=== PATIENT | female | born 1945 | race Caucasian/White ===

== ENCOUNTER 2016-11-17 21:24 | Inpatient (IN) | payer OTHER, SELFPAY ==
[2016-11-17] MEDS ORDERED: Sodium Chloride 0.9% 1,000 ML IV STA (21:56)
[2016-11-17 22:09] LABS: BASO % 0.5 % (0.0-2.0); EOS # 0.1 K/uL (0.0-0.7); EOS % 1.1 % (0.0-4.0); LYMPH # 1.2 K/uL (1.0-4.3); LYMPH % 25.7 % (20.0-40.0); MEAN CORPUSCULAR HEMOGLOBIN 29.8 pg (27.0-31.0); MEAN CORPUSCULAR HGB CONC 33.1 g/dL (33.0-37.0); MEAN PLATELET VOLUME 9.2 fl (7.2-11.7); MONO # 0.4 K/uL (0.0-0.8); MONO % 8.5 % (0.0-10.0); NEUT # 3.1 K/uL (1.8-7.0); NEUT % 64.2 % (50.0-75.0); RED CELL DISTRIBUTION WIDTH 12.9 % (11.5-14.5); WHITE BLOOD COUNT 4.9 K/uL (4.8-10.8)
[2016-11-17 22:20] LABS: ALB/GLOB RATIO 1.3 (1.0-2.1); ALKALINE PHOSPHATASE 197 U/L (38-126); ALT/SGPT 40 U/L (9-52); AST/SGOT 22 U/L (14-36); BILIRUBIN,TOTAL 0.3 mg/dl (0.2-1.3); BLOOD UREA NITROGEN 21 mg/dl (7-17); CALCIUM 9.4 mg/dL (8.4-10.2); CARBON DIOXIDE 27 mmol/L (22-30); CHLORIDE 95 mmol/L (98-107); GFR AFRICAN-AMERICAN > 60; PHOSPHOROUS 3.7 mg/dl (2.5-4.5); POTASSIUM 5.1 MMOL/L (3.6-5.0); SODIUM 133 mmol/l (132-148); TOTAL PROTEIN 7.7 G/DL (6.3-8.2)
[2016-11-17 22:22] LABS: VENOUS BLOOD GAS BASE EXCESS 5.7 mmol/L (0.0-2.0); VENOUS BLOOD GAS PCO2 53 mmHg (40-60); VENOUS BLOOD PH 7.39 (7.32-7.43)
[2016-11-17 22:25] LABS: PARTIAL THROMBOPLASTIN TIME 26.8 Seconds (25.6-37.1)
[2016-11-17] MEDS ORDERED: Insulin Regular 100 units/ml SC STA (22:30)
[2016-11-17] MEDS ORDERED: Insulin Regular 100 units/ml IVP STA (22:30)
[2016-11-17 22:32] LABS: GLUCOSE,RANDOM 627 mg/dL (65-105)
--- NOTE | 2016-11-17 23:09 | ED PDOC ---
Hyperglycemia/Hypoglycemia Time Seen by Provider: 11/17/16 21:35 Chief Complaint (Nursing): High Blood Sugar Chief Complaint (Provider): hyperglycemia History Per: Patient : The patient does not have any of the infectious symptoms listed except for those marked. Past Medical History Vital Signs: Last Vital Signs Temp 98.5 F 11/17/16 21:26 Pulse 71 11/17/16 21:26 Resp 18 11/17/16 21:26 BP 125/82 11/17/16 21:26 Pulse Ox 100 11/17/16 21:26 - Medical History PMH: Dementia (possible), Diabetes (type I), HTN, Hyperthyroidism, Osteoporosis Denies: HIV, Chronic Kidney Disease - Family History Family History: States: Unknown Family Hx - Home Medications Home Medications: Ambulatory Orders Medication Instructions Recorded Aspirin 81 mg PO DAILY #0 tab 05/13/15 Gabapentin [Neurontin] 100 mg PO Q12 #0 cap 05/13/15 GlipiZIDE [Glucotrol] 5 mg PO BID #0 tab 05/13/15 Insulin Regular [HumuLIN R] 1 units SC TID #0 ml 05/13/15 MetFORMIN [glucoPHAGE] 1,000 mg PO BID #0 tab 05/13/15 - Allergies Allergies/Adverse Reactions: Allergies Allergy/AdvReac Type Severity Reaction Status Date / Time No Known Allergies Allergy Verified 03/17/15 19:34 - Laboratory Results Result Diagrams: 11/17/16 22:05 11/17/16 22:06 - ECG O2 Sat by Pulse Oximetry: 100
[2016-11-17] MEDS ORDERED: Glucagon Recombinant 1 mg Inj IM PRN (23:20)
[2016-11-17] MEDS ORDERED: Dextrose 50% SYRINGE Inj (50 ml) IV PRN (23:20)
[2016-11-18 07:01] LABS: HEMATOCRIT 32.8 % (34.0-47.0); MEAN CELL VOLUME 88.9 fl (81.0-99.0); MEAN CORPUSCULAR HGB CONC 33.7 g/dL (33.0-37.0); RED CELL DISTRIBUTION WIDTH 12.5 % (11.5-14.5); WHITE BLOOD COUNT 5.6 K/uL (4.8-10.8)
[2016-11-18 07:10] LABS: ALB/GLOB RATIO 1.2 (1.0-2.1); ALKALINE PHOSPHATASE 92 U/L (38-126); ALT/SGPT 35 U/L (9-52); AST/SGOT 23 U/L (14-36); BILIRUBIN,TOTAL 0.2 mg/dl (0.2-1.3); BLOOD UREA NITROGEN 16 mg/dl (7-17); CALCIUM 8.8 mg/dL (8.4-10.2); CARBON DIOXIDE 29 mmol/L (22-30); CHLORIDE 104 mmol/L (98-107); GFR AFRICAN-AMERICAN > 60; GLUCOSE,RANDOM 78 mg/dL (65-105); POTASSIUM 3.5 MMOL/L (3.6-5.0); SODIUM 143 mmol/l (132-148); TOTAL PROTEIN 6.7 G/DL (6.3-8.2)
[2016-11-18 07:22] LABS: T4 6.51 ug/dl (5.5-11.0)
[2016-11-18] MEDS ORDERED: Insulin Regular 100 units/ml SC SCH (07:30)
[2016-11-18 07:35] LABS: THYROID STIMULATING HORMONE 1.04 mIU/ML (0.46-4.68)
[2016-11-18] MEDS: Insulin Regular 100 units/ml SC SCH ×4 (08:25→22:03)
--- NOTE | 2016-11-18 15:50 | RAD ---
HISTORY: Hyperglycemia COMPARISON: Comparison chest 05/13/2015 TECHNIQUE: Chest PA and lateral FINDINGS: LUNGS: No active pulmonary disease. PLEURA: No significant pleural effusion identified. No pneumothorax apparent. CARDIOVASCULAR: Normal. OSSEOUS STRUCTURES: There is mild dextroscoliosis centered in the lower thoracic region minor multilevel degenerative spondylosis of the thoracic spine VISUALIZED UPPER ABDOMEN: Normal. OTHER FINDINGS: None. IMPRESSION: No acute infiltrates.
[2016-11-18] MEDS ORDERED: Insulin Lispro Mix 75/25 100 units/ml (HumaLog) 10ml SC SCH (16:30)
--- NOTE | 2016-11-18 18:31 | CP.PCM.HP ---
History of Present Illness - History of Present Illness History of Present Illness: CC: Blood Sugar elevated. 71 y/o F, brought by family to ER [facility], [place] due to high BS, onset 3 weeks [employer] with no control. Pt seen in ER, BS high elevated, found in 627, associated to nocturnal polyuria , dizziness, lightheadedness. Worsening symptoms: Dementia, also c/o of pain L /E moderate to severe 7:10. Pt Dx by Psychiatric on 09/15/14 with Dementia type Alzheimer, as per daughter, Pt has been out of Insulin for 2 months, due to non insurance and no financial facility to obtained, at times she get samples from her PMD, also she doesn't know how to use it or administer and unable to take medications 2nd to her cognitive impairment. Aggravated factor: Non in compliance with medications, poor historian. As per daughter: No fever, chills, n/v/d, abdominal pain, CP, palpitations, SOB , sick contact, recent travel. PMHx: HTN, O/A, Dyslipidemia, DMII, Diabetic Neuropathy, Dementia-Alzheimer type, Hx of R Parathyroid Adenoma with Parathyroidectomy on 09/11/14. CXR shows: No acute infiltrate. Present on Admission - Present on Admission Any Indicators Present on Admission: Yes History of Uncontrolled Diabetes: Yes Review of Systems - Constitutional Constitutional: Weakness - EENT Eyes: Requires Corrective Lenses Ears: Other (negative) Nose/Mouth/Throat: Other (negative) - Cardiovascular Cardiovascular: Lightheadedness - Respiratory Respiratory: Other (negative) - Gastrointestinal Gastrointestinal: Other (negative) - Genitourinary Genitourinary: Pyuria, Nocturia, Urinary Frequency - Musculoskeletal Musculoskeletal: Arthralgias - Integumentary Integumentary: Other (negative) - Neurological Neurological: Confusion, Dizziness - Psychiatric Psychiatric: Other (cognitive impairment.) - Endocrine Endocrine: Other (negative) - Hematologic/Lymphatic Hematologic: Other (negative) Past Patient History - Past Medical History & Family History Past Medical History?: Yes Pertinent Family History: HTN, DMII. - Past Social History Smoking Status: Never Smoked Alcohol: None Drugs: Denies Home Situation {Lives}: With Family - CARDIAC Hx Cardiac Disorders: Yes Hx Hypercholesterolemia: Yes Hx Hypertension: Yes - PULMONARY Hx Respiratory Disorders: No - NEUROLOGICAL Hx Neurological Disorder: Yes Hx Dementia: Yes (possible) Other/Comment: Diabetes Neuropathy. - HEENT Hx HEENT Problems: No - RENAL Hx Chronic Kidney Disease: No - ENDOCRINE/METABOLIC Hx Endocrine Disorders: Yes Hx Diabetes Mellitus Type 2: Yes Other/Comment: Hx Parathyroid Adenoma with Parathyroidectomy on 09/11/14. - HEMATOLOGICAL/ONCOLOGICAL Hx Blood Disorders: No Hx Human Immunodeficiency Virus (HIV): No - INTEGUMENTARY Hx Dermatological Problems: No - MUSCULOSKELETAL/RHEUMATOLOGICAL Hx Musculoskeletal Disorders: Yes Hx Arthritis: Yes Hx Falls: No Hx Osteoporosis: Yes - GASTROINTESTINAL Hx Gastrointestinal Disorders: No - GENITOURINARY/GYNECOLOGICAL Hx Genitourinary Disorders: No - PSYCHIATRIC Hx Substance Use: No - SURGICAL HISTORY Hx Surgeries: Yes Other/Comment: parathyroidectomy 09/11/14 - ANESTHESIA Hx Anesthesia: Yes Hx Anesthesia Reactions: No Hx Malignant Hyperthermia: No Meds Allergies/Adverse Reactions: Allergies Allergy/AdvReac Type Severity Reaction Status Date / Time No Known Allergies Allergy Verified 03/17/15 19:34 Physical Exam - Constitutional Appears: No Acute Distress, Chronically Ill - Head Exam Head Exam: NORMAL INSPECTION - Eye Exam Eye Exam: PERRL Additional comments: Conjunctivae redness. - ENT Exam ENT Exam: Normal Exam - Neck Exam Neck exam: Positive for: Normal Inspection - Respiratory Exam Respiratory Exam: NORMAL BREATHING PATTERN - Cardiovascular Exam Cardiovascular Exam: REGULAR RHYTHM - GI/Abdominal Exam GI & Abdominal Exam: Normal Bowel Sounds, Soft - Extremities Exam Extremities exam: Positive for: normal inspection - Back Exam Back exam: NORMAL INSPECTION - Neurological Exam Neurological exam: Alert, Oriented x3 Additional comments: Forgetful, no focal motor sensory deficit. - Psychiatric Exam Psychiatric exam: Normal Mood - Skin Skin Exam: Warm Results - Vital Signs Recent Vital Signs: Last Vital Signs Temp 98.6 F 11/18/16 16:07 Pulse 66 11/18/16 16:07 Resp 20 11/18/16 16:07 BP 110/64 11/18/16 16:07 Pulse Ox 96 11/18/16 16:07 reviewed Maximo - Labs Result Diagrams: 11/20/16 06:00 11/20/16 06:00 Labs: Laboratory Results - last 24 hr 11/17/16 11/18/16 11/18/16 23:58 01:28 05:30 WBC 5.6 RBC 3.69 L Hgb 11.1 L Hct 32.8 L MCV 88.9 MCH 30.0 MCHC 33.7 RDW 12.5 Plt Count 171 Sodium Potassium Chloride Carbon Dioxide Anion Gap BUN Creatinine Est GFR ( Amer) Est GFR (Non-Af Amer) POC Glucose (mg/dL) 348 H 238 H Random Glucose Hemoglobin A1c Calcium Total Bilirubin AST ALT Alkaline Phosphatase Total Protein Albumin Globulin Albumin/Globulin Ratio Thyroxine (T4) Total T3 TSH 3rd Generation 11/18/16 11/18/16 11/18/16 05:30 05:30 06:20 WBC RBC Hgb Hct MCV MCH MCHC RDW Plt Count Sodium 143 Potassium 3.5 L Chloride 104 Carbon Dioxide 29 Anion Gap 14 BUN 16 Creatinine 0.6 L Est GFR ( Amer) > 60 Est GFR (Non-Af Amer) > 60 POC Glucose (mg/dL) 82 Random Glucose 78 Hemoglobin A1c 15.0 H Calcium 8.8 Total Bilirubin 0.2 AST 23 ALT 35 Alkaline Phosphatase 92 Total Protein 6.7 Albumin 3.6 Globulin 3.1 Albumin/Globulin Ratio 1.2 Thyroxine (T4) 6.51 Total T3 0.733 L TSH 3rd Generation 1.04 11/18/16 11/18/16 10:45 15:50 WBC RBC Hgb Hct MCV MCH MCHC RDW Plt Count Sodium Potassium Chloride Carbon Dioxide Anion Gap BUN Creatinine Est GFR ( Amer) Est GFR (Non-Af Amer) POC Glucose (mg/dL) 388 H 272 H Random Glucose Hemoglobin A1c Calcium Total Bilirubin AST ALT Alkaline Phosphatase Total Protein Albumin Globulin Albumin/Globulin Ratio Thyroxine (T4) Total T3 TSH 3rd Generation reviewed J.P. Assessment & Plan (1) DM2 (diabetes mellitus, type 2) Status: Acute Priority: High (2) Hyperglycemia Status: Acute Priority: High (3) Dementia Status: Chronic Priority: Low (4) Osteoporosis Status: Chronic Priority: Medium - Assessment and Plan (Free Text) Plan: F/U Echo, EKG, continue Humalin R, Glucophage, Lipitor and rest of Tx. Endocrinology consult - Date & Time Date: 11/18/16 Time: 16:00
--- NOTE | 2016-11-18 20:18 | CARD ---
APPROVED REPORT EXAM: Two-dimensional and M-mode echocardiogram with Doppler and color Doppler. Other Information Quality : GoodRhythm : NSR INDICATION LV Function:SystolicDiastolic 2D DIMENSIONS IVSd1.06 (0.7-1.1cm)LVDd3.09 (3.9-5.9cm) LVOT Diameter1.92 (1.8-2.4cm)PWd0.77 (0.7-1.1cm) IVSs1.64 (0.8-1.2cm)LVDs1.71 (2.5-4.0cm) FS (%) 44.5 %PWs0.95 (0.8-1.2cm) LVEF (%)55.0 (>50%) M-Mode DIMENSIONS Left Atrium (MM)3.71 (2.5-4.0cm)IVSd1.21 (0.7-1.1cm) Aortic Root3.14 (2.2-3.7cm)LVDd4.09 (4.0-5.6cm) Aortic Cusp Exc.2.11 (1.5-2.0cm)PWd1.00 (0.7-1.1cm) IVSs1.72 cmFS (%) 53 % LVDs1.93 (2.0-3.8cm)PWs1.49 cm Mitral Valve MV E Dsrqvqfg38.8cm/sMV DECEL QOMS273ymFR A Xwhivynb14.7cm/s MV UBD34uuY/A ratio0.8MVA (PHT)2.25cm2 TDI Lateral E' Peak V9.53cm/sMedial E' Peak V6.76cm/sE/Lateral E'7.0 E/Medial E'9.9 LEFT VENTRICLE The left ventricle is normal size. There is mild concentric left ventricular hypertrophy. The left ventricular function is normal. The left ventricular ejection fraction is within the normal range. There is normal LV segmental wall motion. Transmitral Doppler flow pattern is Grade I-abnormal relaxation pattern. RIGHT VENTRICLE The right ventricle is normal size. There is normal right ventricular wall thickness. The right ventricular systolic function is normal. ATRIA The left atrium size is normal. The right atrium size is normal. AORTIC VALVE The aortic valve is mildly thickened. No aortic regurgitation is present. There is no aortic valvular stenosis. MITRAL VALVE The mitral valve is mildly thickened. There is no mitral valve stenosis. There is no mitral valve regurgitation noted. TRICUSPID VALVE The tricuspid valve is normal in structure and function. There is no tricuspid valve regurgitation noted. PULMONIC VALVE The pulmonary valve is normal in structure and function. There is no pulmonic valvular regurgitation. GREAT VESSELS The aortic root is normal in size. The IVC was not visualized. PERICARDIAL EFFUSION The pericardium appears normal. <Conclusion> The left ventricle is normal size. There is mild concentric left ventricular hypertrophy. The left ventricular function is normal. The left ventricular ejection fraction is within the normal range. There is normal LV segmental wall motion. Transmitral Doppler flow pattern is Grade I-abnormal relaxation pattern.
--- NOTE | 2016-11-18 20:44 | CON ---
DATE: 11/18/2016 ROOM: 657 HISTORY OF PRESENT ILLNESS: This is a 71-year-old female with recent uncontrolled type 2 insulin-req uiring diabetes, presenting here with hyperglycemic accelerations and is now being referred for diabe tic evaluation and management. She is currently on a combination of metformin taken as 1 gram b.i.d. and glipizide as 5 mg b.i.d. as noted. PAST MEDICAL HISTORY: As mentioned above, history of type 2 diabetes on an oral hypoglycemic drug co mbination, history of hypertensive cardiovascular disease and dyslipidemia, history of diffuse osteoa rthritis as noted. FAMILY HISTORY: Positive for diabetes and hypertension. SOCIAL HISTORY: The patient has supportive family. No known substance use. REVIEW OF SYSTEMS: As mentioned above, admits to generalized body weakness with easy fatigability an d tiredness and suboptimal energy level. Also admits to episodic bouts of dizziness and lightheadedn ess, worse in the last few days prior to admission. No chest pains or palpitations or PNDs. Her ora l intake has been variable and suboptimal with occasional dyspepsia and habitual constipation. Also, admits to marked polyuria, nocturia, worse in the last few weeks prior to admission. PHYSICAL EXAMINATION: GENERAL: An average built female in no apparent distress. VITAL SIGNS: Blood pressure 144/80, pulse of 70 beats per minute and regular, temperature 98, respir ations 20. HEENT: Head normocephalic. Eyes anicteric with pink conjunctivae. Fundoscopy not possible at this time. Ears, nose and throat otherwise normal. NECK: Supple. Thyroid gland is normal size. No carotid bruits or any cervical adenopathy. CARDIOPULMONARY: Some adynamic precordium. S1, S2 is rapid and regular. LUNGS: Clear to auscultation. ABDOMEN: Flat, soft with positive bowel sounds. EXTREMITIES: No peripheral edema. Pulses are +2 bilaterally. LABORATORY DATA: Have been reviewed. Chemistries have been reviewed as noted, her ____ have ranged from 250 to 388 mg/dL as noted. ASSESSMENT: This is a 71-year-old female with uncontrolled and decompensated type 2 insulin-requirin g diabetes with possible secondary pancreatic failure and clearly insulin-requiring with as noted fro m the elevated A1c values as given. PLAN OF MANAGEMENT: We will add premixed insulin regimen, which is a more affordable and cheaper ins ulin such as Humulin or Novolin 70/30 given twice daily. However, our hospital formulary only caries Humalog 75/25 which is a very expensive insulin analogs as noted. We will give basal insulin only f or inpatient use, but upon discharge we recommended cheaper and more affordable conventional insulin medications as mentioned. We will start her today on Humalog 75/25 given as 30 units a.c. breakfast and 20 units a.c. dinner to start at dinnertime today as ordered. We will continue the metformin giv en as 1 gram b.i.d. and increase the glipizide to 10 mg b.i.d. before meals as ordered. We will cont inue the low-dose correction scale using regular insulin as modified and ordered. We will obtain ser ial chemistries and supplement accordingly as needed. We will also initiate diabetic education to in clude insulin self-administration prior to discharge. We will also reinforce healthier food choices and consult our molded frames assembler for dietary advice and evaluation. Mattie Estrella MD cc: [phone] TT: 11/18/2016 20:43:51 Confirmation # [id number] Dictation # [id number] gina
--- NOTE | 2016-11-18 23:35 | CARD ---
APPROVED REPORT EKG Measurement Heart [id number] IL [id number] [id number] <Conclusion> Normal sinus rhythm Low voltage QRS Possible Inferior infarct, age undetermined Abnormal ECG
[2016-11-19] MEDS: Insulin Regular 100 units/ml SC SCH ×4 (07:30→22:35)
[2016-11-19] MEDS: Insulin Lispro Mix 75/25 100 units/ml (HumaLog) 10ml SC SCH ×2 (08:30→10:02)
[2016-11-19 12:42] LABS: HEMATOCRIT 34.1 % (34.0-47.0); MEAN CELL VOLUME 89.7 fl (81.0-99.0); MEAN CORPUSCULAR HGB CONC 33.4 g/dL (33.0-37.0); RED CELL DISTRIBUTION WIDTH 12.8 % (11.5-14.5); WHITE BLOOD COUNT 5.8 K/uL (4.8-10.8)
[2016-11-19 13:00] LABS: BLOOD UREA NITROGEN 13 mg/dl (7-17); CARBON DIOXIDE 27 mmol/L (22-30); CHLORIDE 101 mmol/L (98-107); GFR AFRICAN-AMERICAN > 60; GLUCOSE,RANDOM 263 mg/dL (65-105); SODIUM 138 mmol/l (132-148)
--- NOTE | 2016-11-19 13:51 | PN ---
DATE: 11/19/2016 ROOM: 655 This is a 71-year-old female with recent uncontrolled type 2 insulin-requiring diabetes, presenting h ere with marked hyperglycemic accelerations and is now being followed closely for metabolic managemen t. She developed now supervening hypoglycemic episodes overnight, but today has hyperglycemic accele rations as expected with a glucose value of 302 mg/dL at lunch time as noted. It was 70-91 early thi s morning as noted. Her latest chemistry showed a BUN of 16, sodium 143, potassium 3.5, chloride 104, CO2 29, glucose 78 and creatinine 0.6. Her hemoglobin A1c is 15.0%, which is very elevated and indicative of suboptimal metabolic control of her diabetic condition. So at this time, we will continue the same dual oral hypoglycemic therapy with metformin given as 1 g juliana b.i.d. and glipizide as 10 mg b.i.d. before meals. We do not carry at this time the premixed Hum alog 75/25 as noted and discussed with the pharmacist today, so we will hold off on the premixed insu alex regimen and keep her on the low-dose correction scale using regular insulin as ordered. We will titrate incrementally as indicated to optimize metabolic control. We will hold off the initiation of insulin therapy as we do not have it available in the hospital and we are hoping that just the combi nation of oral hypoglycemic therapy will be enough to control her metabolically and clinically as not ed. Mattie Estrella MD cc: [phone] TT: 11/19/2016 13:50:30 Confirmation # [id number] Dictation # [id number] en
--- NOTE | 2016-11-19 15:02 | CP.PCM.PN ---
Subjective - Date & Time of Evaluation Date of Evaluation: 11/19/16 - Subjective Subjective: F/U DMII with Hyperglycemia. Objective - Vital Signs/Intake and Output Vital Signs (last 24 hours): Temp Pulse Resp BP Pulse Ox 98.3 F 67 18 121/69 98 11/19/16 09:00 11/19/16 09:00 11/19/16 09:00 11/19/16 09:00 11/19/16 09:00 - Medications Medications: Current Medications Acetaminophen (Tylenol 325mg Tab) 650 mg PO Q4 PRN PRN Reason: Pain, moderate (4-7) Last Admin: 11/18/16 02:34 Dose: 650 mg Atorvastatin Calcium (Lipitor) 10 mg PO HS JANNET Last Admin: 11/18/16 22:06 Dose: 10 mg Dextrose (Dextrose 50% Inj) 0 ml IV STAT PRN; Protocol PRN Reason: Hyglycemia Protocol Dextrose (Glutose 15) 0 gm PO ONCE PRN; Protocol PRN Reason: Hypoglycemia Protocol Glipizide (Glucotrol) 10 mg PO ACBD [facility] Last Admin: 11/19/16 09:24 Dose: 10 mg Glucagon (Glucagen Diagnostic Kit) 0 mg IM STAT PRN; Protocol PRN Reason: Hypoglycemia Protocol Insulin Human Regular (Humulin R) 0 units SC ACHS JANNET PRN Reason: Protocol Last Admin: 11/19/16 12:37 Dose: 4 unit Metformin HCl (Glucophage) 1,000 mg PO BID [facility] Last Admin: 11/19/16 09:24 Dose: 1,000 mg - Labs Labs: 11/18/16 05:30 11/18/16 05:30 PT 12.6 Seconds (9.8-13.1) 11/17/16 22:15 INR 1.1 (0.9-1.2) 11/17/16 22:15 APTT 26.8 Seconds (25.6-37.1) 11/17/16 22:15 - Constitutional Appears: No Acute Distress - Head Exam Head Exam: NORMAL INSPECTION - Eye Exam Eye Exam: PERRL Additional comments: Conjunctivae redness. - ENT Exam ENT Exam: Normal Oropharynx - Neck Exam Neck Exam: Normal Inspection - Respiratory Exam Respiratory Exam: NORMAL BREATHING PATTERN - Cardiovascular Exam Cardiovascular Exam: REGULAR RHYTHM - GI/Abdominal Exam GI & Abdominal Exam: Soft, Normal Bowel Sounds - Extremities Exam Extremities Exam: Normal Inspection - Back Exam Back Exam: NORMAL INSPECTION - Neurological Exam Neurological Exam: Alert, Oriented x3 Additional comments: No focal motor sensory deficit. - Psychiatric Exam Psychiatric exam: Normal Mood - Skin Skin Exam: Warm Assessment and Plan (1) DM2 (diabetes mellitus, type 2) Status: Acute (2) Hyperglycemia Status: Acute (3) Dementia Status: Chronic (4) Hypercalcemia Status: Deleted (5) Osteoporosis Status: Chronic
[2016-11-20 08:08] LABS: HEMATOCRIT 36.5 % (34.0-47.0); MEAN CELL VOLUME 89.1 fl (81.0-99.0); MEAN CORPUSCULAR HGB CONC 33.7 g/dL (33.0-37.0); RED CELL DISTRIBUTION WIDTH 12.6 % (11.5-14.5); WHITE BLOOD COUNT 5.7 K/uL (4.8-10.8)
[2016-11-20 08:22] LABS: BLOOD UREA NITROGEN 16 mg/dl (7-17); CALCIUM 9.3 mg/dL (8.4-10.2); CARBON DIOXIDE 29 mmol/L (22-30); CHLORIDE 101 mmol/L (98-107); GFR AFRICAN-AMERICAN > 60; GLUCOSE,RANDOM 259 mg/dL (65-105); SODIUM 140 mmol/l (132-148)
[2016-11-20] MEDS: Insulin Regular 100 units/ml SC SCH ×4 (08:27→21:33)
--- NOTE | 2016-11-20 11:59 | PN ---
DATE: 11/20/2016 ROOM: 655. This is a 71-year-old female with recent uncontrolled type 2 insulin-requiring diabetes, now being fo llowed closely for metabolic management. Her glycemic levels are fluctuating as noted with only oral hypoglycemic drug therapy as given. Her glucose values today have ranged from 262-356 mg/dL. Her l atest chemistry showed a BUN of 16, sodium 140, potassium 4.0, chloride 101, CO2 29, glucose 259 and creatinine 0.5. So, at this time, we will actually be adding a more affordable longer acting basal i nsulin at night with Humulin NPH given as 12 units subQ at bedtime daily to start tonight. We will c ontinue the glipizide given as 10 mg b.i.d. before meals and metformin 1000 mg b.i.d. after meals as ordered. We will titrate incrementally as indicated to optimize metabolic control. We will follow a nd advise accordingly. Mattie Estrella MD cc: [phone] TT: 11/20/2016 11:58:44 Confirmation # [id number] Dictation # [id number]
--- NOTE | 2016-11-20 17:09 | CP.PCM.PN ---
Subjective - Date & Time of Evaluation Date of Evaluation: 11/20/16 Time of Evaluation: 15:00 - Subjective Subjective: F/U Hyperglycemia. No A/D, no c/o. Objective - Vital Signs/Intake and Output Vital Signs (last 24 hours): Temp Pulse Resp BP Pulse Ox 98 F 71 20 94/57 L 97 11/20/16 16:52 11/20/16 16:52 11/20/16 16:52 11/20/16 16:52 11/20/16 16:52 - Medications Medications: Current Medications Acetaminophen (Tylenol 325mg Tab) 650 mg PO Q4 PRN PRN Reason: Pain, moderate (4-7) Last Admin: 11/18/16 02:34 Dose: 650 mg Atorvastatin Calcium (Lipitor) 10 mg PO HS [facility] Last Admin: 11/19/16 21:54 Dose: 10 mg Dextrose (Dextrose 50% Inj) 0 ml IV STAT PRN; Protocol PRN Reason: Hyglycemia Protocol Dextrose (Glutose 15) 0 gm PO ONCE PRN; Protocol PRN Reason: Hypoglycemia Protocol Glipizide (Glucotrol) 10 mg PO ACBD [facility] Last Admin: 11/20/16 17:02 Dose: 10 mg Glucagon (Glucagen Diagnostic Kit) 0 mg IM STAT PRN; Protocol PRN Reason: Hypoglycemia Protocol Insulin Human NPH (Humulin N) 12 units SC HS [facility] Insulin Human Regular (Humulin R) 0 units SC ACHS [facility] PRN Reason: Protocol Last Admin: 11/20/16 17:02 Dose: 5 unit Metformin HCl (Glucophage) 1,000 mg PO BID [facility] Last Admin: 11/20/16 17:02 Dose: 1,000 mg - Labs Labs: 11/20/16 06:00 11/20/16 06:00 PT 12.6 Seconds (9.8-13.1) 11/17/16 22:15 INR 1.1 (0.9-1.2) 11/17/16 22:15 APTT 26.8 Seconds (25.6-37.1) 11/17/16 22:15 - Constitutional Appears: No Acute Distress - Head Exam Head Exam: NORMAL INSPECTION - Eye Exam Eye Exam: PERRL - ENT Exam ENT Exam: Normal Oropharynx - Neck Exam Neck Exam: Normal Inspection - Respiratory Exam Respiratory Exam: NORMAL BREATHING PATTERN - Cardiovascular Exam Cardiovascular Exam: REGULAR RHYTHM - GI/Abdominal Exam GI & Abdominal Exam: Soft, Normal Bowel Sounds - Extremities Exam Extremities Exam: Normal Inspection - Back Exam Back Exam: NORMAL INSPECTION - Neurological Exam Neurological Exam: Alert, Oriented x3 Additional comments: No focal motor sensory deficit. - Psychiatric Exam Psychiatric exam: Normal Mood - Skin Skin Exam: Warm Assessment and Plan (1) DM2 (diabetes mellitus, type 2) Status: Acute (2) Hyperglycemia Status: Acute (3) Dementia Status: Chronic (4) Osteoporosis Status: Chronic - Assessment and Plan (Free Text) Plan: Pt on trial of Humulin NPH , BS still elevated.
[2016-11-20] MEDS ORDERED: Insulin NPH Human 100 Units/ml Inj SC SCH (22:00)
[2016-11-21] MEDS: Insulin Regular 100 units/ml SC SCH ×4 (07:02→21:34)
--- NOTE | 2016-11-21 19:55 | CP.PCM.PN ---
Subjective - Date & Time of Evaluation Date of Evaluation: 11/21/16 Time of Evaluation: 10:30 - Subjective Subjective: F/U DMII with Hyperglycemia. No AD , N/C Objective - Vital Signs/Intake and Output Vital Signs (last 24 hours): Temp Pulse Resp BP Pulse Ox 99.8 F H 85 20 105/62 96 11/21/16 16:21 11/21/16 16:21 11/21/16 16:21 11/21/16 16:21 11/21/16 16:21 - Medications Medications: Current Medications Acetaminophen (Tylenol 325mg Tab) 650 mg PO Q4 PRN PRN Reason: Pain, moderate (4-7) Last Admin: 11/18/16 02:34 Dose: 650 mg Atorvastatin Calcium (Lipitor) 10 mg PO HS [facility] Last Admin: 11/20/16 21:33 Dose: 10 mg Dextrose (Dextrose 50% Inj) 0 ml IV STAT PRN; Protocol PRN Reason: Hyglycemia Protocol Dextrose (Glutose 15) 0 gm PO ONCE PRN; Protocol PRN Reason: Hypoglycemia Protocol Glipizide (Glucotrol) 10 mg PO ACBD [facility] Last Admin: 11/21/16 17:00 Dose: 10 mg Glucagon (Glucagen Diagnostic Kit) 0 mg IM STAT PRN; Protocol PRN Reason: Hypoglycemia Protocol Insulin Human NPH (Humulin N) 12 units SC [facility] Insulin Human Regular (Humulin R) 0 units SC [facility] PRN Reason: Protocol Last Admin: 11/21/16 17:00 Dose: Not Given Metformin HCl (Glucophage) 1,000 mg PO BID [facility] Last Admin: 11/21/16 17:01 Dose: 1,000 mg - Labs Labs: 11/20/16 06:00 11/20/16 06:00 PT 12.6 Seconds (9.8-13.1) 11/17/16 22:15 INR 1.1 (0.9-1.2) 11/17/16 22:15 APTT 26.8 Seconds (25.6-37.1) 11/17/16 22:15 - Constitutional Appears: No Acute Distress - Head Exam Head Exam: NORMAL INSPECTION - Eye Exam Eye Exam: PERRL - ENT Exam ENT Exam: Normal Oropharynx - Neck Exam Neck Exam: Normal Inspection - Respiratory Exam Respiratory Exam: NORMAL BREATHING PATTERN - Cardiovascular Exam Cardiovascular Exam: REGULAR RHYTHM - GI/Abdominal Exam GI & Abdominal Exam: Soft, Normal Bowel Sounds - Extremities Exam Extremities Exam: Normal Inspection - Back Exam Back Exam: NORMAL INSPECTION - Neurological Exam Neurological Exam: Alert, Oriented x3 Additional comments: No focal motor sensory deficit. - Psychiatric Exam Psychiatric exam: Normal Mood - Skin Skin Exam: Warm Assessment and Plan (1) DM2 (diabetes mellitus, type 2) Status: Acute (2) Hyperglycemia Status: Acute (3) Dementia Status: Chronic (4) Osteoporosis Status: Chronic - Assessment and Plan (Free Text) Plan: BS elevated , B S elevated , Patient on Metformin , Glucotrol, Humulin NPH ,f/u BS today , may need increase of Humulin NPH BID , f/u Endocrine consult.
[2016-11-21] MEDS ORDERED: Insulin NPH Human 100 Units/ml Inj SC SCH ×3 (22:00)
[2016-11-22] MEDS: Insulin Regular 100 units/ml SC SCH ×3 (07:30→16:52)
[2016-11-22 08:54] VITALS: O2SAT 98
[2016-11-22 16:06] VITALS: BP 109/69; PULSE 86; RESP 18; TEMP 100.9
--- NOTE | 2016-11-22 17:30 | CP.PCM.PN ---
Subjective - Date & Time of Evaluation Date of Evaluation: 11/22/16 Time of Evaluation: 11:30 - Subjective Subjective: F/U DM with Hyperglycemia. Pt with no c/o. Objective - Vital Signs/Intake and Output Vital Signs (last 24 hours): Temp Pulse Resp BP Pulse Ox 100.9 F H 86 18 109/69 98 11/22/16 16:05 11/22/16 16:05 11/22/16 16:05 11/22/16 16:05 11/22/16 16:05 - Labs Labs: 11/20/16 06:00 11/20/16 06:00 PT 12.6 Seconds (9.8-13.1) 11/17/16 22:15 INR 1.1 (0.9-1.2) 11/17/16 22:15 APTT 26.8 Seconds (25.6-37.1) 11/17/16 22:15 - Constitutional Appears: No Acute Distress - Head Exam Head Exam: NORMAL INSPECTION - Eye Exam Eye Exam: PERRL - ENT Exam ENT Exam: Normal Oropharynx - Neck Exam Neck Exam: Normal Inspection - Respiratory Exam Respiratory Exam: NORMAL BREATHING PATTERN - Cardiovascular Exam Cardiovascular Exam: REGULAR RHYTHM - GI/Abdominal Exam GI & Abdominal Exam: Soft, Normal Bowel Sounds - Extremities Exam Extremities Exam: Normal Inspection - Back Exam Back Exam: NORMAL INSPECTION - Neurological Exam Neurological Exam: Alert, Oriented x3 Additional comments: No focal motor sensory deficit. - Psychiatric Exam Psychiatric exam: Normal Mood - Skin Skin Exam: Warm Assessment and Plan (1) DM2 (diabetes mellitus, type 2) Status: Acute (2) Hyperglycemia Status: Acute (3) Dementia Status: Chronic (4) Osteoporosis Status: Chronic - Assessment and Plan (Free Text) Plan: BS stable, on Humilin NPH 12 hrs sleep, continue Metformin, Glucophage, Pt improved and stable to be discharged, see instruction medication sheet, f/u PMD in a week.
[2016-11-22] MEDS ORDERED: Insulin NPH Human 100 Units/ml Inj SC SCH (22:00)
== END 2016-11-22 17:00 | disposition home or self-care (01) | DRG 19 ==
LOC: H.ER 21:24 → H.ERHOLD 23:18 → H.MEDSURG1 11-18 01:35
PROVIDERS: ADMIT Internal Medicine Pulmonary Disease; ATTEND Internal Medicine Pulmonary Disease
DX: E11.65 Type 2 diabetes mellitus with hyperglycemia (principal); E11.40 Type 2 diabetes mellitus with diabetic neuropathy, unspecified; G30.9 Alzheimer's disease, unspecified; F02.80 Dementia in other diseases classified elsewhere, unspecified severity, without behavioral disturbance, psychotic disturbance, mood disturbance, and anxiety; I10 Essential (primary) hypertension; E78.5 Hyperlipidemia, unspecified; Z79.4 Long term (current) use of insulin; M81.0 Age-related osteoporosis without current pathological fracture; M19.90 Unspecified osteoarthritis, unspecified site; Z91.14 Patient's other noncompliance with medication regimen

== ENCOUNTER 2016-11-23 08:47 | Inpatient (IN) | payer SELFPAY ==
[2016-11-23] MEDS ORDERED: Sodium Chloride 0.9% 1,000 ML IV SCH (09:30)
--- NOTE | 2016-11-23 09:49 | ED PDOC ---
Lower Extremity Pain/Injury Time Seen by Provider: 11/23/16 09:08 Chief Complaint (Nursing): Lower Extremity Problem/Injury Additional Complaint(s): Patient is a 71 y/o F with hx of osteoporosis, dementia, hyperglycemia, and DM, who was discharged from hospital yesterday, presenting with generalized fatigue. Daughter and granddaughter reports that when patient was discharged yesterday she was unable to walk unassisted. They report that the is complaining of "aching pain" "all over." Denies chest pain, shortness of breath , fever, cough, uri complaints, or focal weakness. Past Medical History Vital Signs: Last Vital Signs Temp 100 F H 11/23/16 08:57 Pulse 88 11/23/16 08:57 Resp 20 11/23/16 08:57 BP 123/59 L 11/23/16 08:57 Pulse Ox 98 11/23/16 08:57 - Medical History PMH: Arthritis, Dementia (possible), Diabetes (type I), HTN, Hypercholesterolemia, Hyperthyroidism, Osteoporosis Denies: HIV, Chronic Kidney Disease - Family History Family History: States: Unknown Family Hx - Home Medications Home Medications: Ambulatory Orders Medication Instructions Recorded Atorvastatin [Lipitor] 10 mg PO HS 11/18/16 GlipiZIDE [Glucotrol] 10 mg PO ACBD #30 tab 11/22/16 Insulin Human NPH [Humulin N] 12 units SC HS vial 11/22/16 MetFORMIN [glucoPHAGE] 1,000 mg PO BID 11/23/16 - Allergies Allergies/Adverse Reactions: Allergies Allergy/AdvReac Type Severity Reaction Status Date / Time No Known Allergies Allergy Verified 11/23/16 08:57 Review of Systems Constitutional: Positive for: Weakness (generalized), Malaise. Negative for: Fever, Chills Cardiovascular: Negative for: Chest Pain, Palpitations, Paroxysmal Noc. Dyspnea , Edema, Light Headedness Respiratory: Negative for: Cough, Shortness of Breath, SOB with Exertion, Wheezing Gastrointestinal: Negative for: Nausea, Vomiting, Abdominal Pain, Diarrhea, Constipation Genitourinary Female: Negative for: Dysuria Neurological: Positive for: Numbness (in b/l toes (baseline)). Negative for: Altered Mental Status, Headache Physical Exam - Physical Exam Appears: Positive for: Well, Non-toxic Skin: Positive for: Normal Color, Warm, DRY Eye Exam: Positive for: EOMI, Normal appearance, PERRL Neck: Positive for: Normal, Painless ROM, Supple Cardiovascular/Chest: Positive for: Regular Rate, Rhythm. Negative for: Murmur Respiratory: Positive for: Normal Breath Sounds. Negative for: Rhonchi, Stridor , Wheezing Gastrointestinal/Abdominal: Positive for: Soft. Negative for: Tenderness, Mass , Distended Back: Positive for: Normal Inspection. Negative for: L CVA Tenderness, R CVA Tenderness Extremity: Positive for: Normal ROM (normal strength while tested in bed) Neurologic/Psych: Positive for: Alert, Oriented, Gait (unable to walk unassisted ) - Laboratory Results Result Diagrams: 11/23/16 09:51 11/23/16 09:51 - ECG O2 Sat by Pulse Oximetry: 98 Medical Decision Making Medical Decision Making: Patient was discharged yesterday and unable to ambulate at home alone. No focal weakness. Hyperglycemic on arrival. Will get labs, ua, cxray and speak to Dr. Price 10:01AM EKG shows NSR at 85bpm with normal intervals and no ST changes, grossly unchanged from prior on 11/18 1:14PM Labs reviewed. WBC elevated and xray shows ?developing L sided infiltrate. UA negative. Patient has no focal weakness, but may be conditioned from hospital stay. Unable to safely discharge. Will start antibiotics for hospital acquired pneumonia. Spoke to Dr. Price and will admit with pt/ot on consult for deconditioning. Disposition - Clinical Impression Clinical Impression: Pneumonia, Physical deconditioning - Disposition Disposition Time: 13:15 Condition: FAIR - Pt Status Changed To: Hospital Disposition Of: Inpatient - Admit Certification Admit to Inpatient:: After my assessment, the patient will require hospitalization for at least two midnights. This is because of the severity of symptoms shown, intensity of services needed, and/or the medical risk in this patient being treated as an outpatient.
[2016-11-23 09:55] LABS: BASO % 0.3 % (0.0-2.0); HEMATOCRIT 33.9 % (34.0-47.0); LYMPH # 0.6 K/uL (1.0-4.3); LYMPH % 4.9 % (20.0-40.0); MEAN CELL VOLUME 89.2 fl (81.0-99.0); MEAN CORPUSCULAR HGB CONC 33.6 g/dL (33.0-37.0); MEAN PLATELET VOLUME 9.4 fl (7.2-11.7); MONO # 0.9 K/uL (0.0-0.8); MONO % 7.2 % (0.0-10.0); NEUT # 10.5 K/uL (1.8-7.0); NEUT % 87.6 % (50.0-75.0); PLATELET COUNT 187 K/uL (130-400); RED CELL DISTRIBUTION WIDTH 12.6 % (11.5-14.5)
[2016-11-23 10:09] LABS: ALKALINE PHOSPHATASE 118 U/L (38-126); ALT/SGPT 44 U/L (9-52); AST/SGOT 37 U/L (14-36); BILIRUBIN,TOTAL 1.6 mg/dl (0.2-1.3); BLOOD UREA NITROGEN 17 mg/dl (7-17); CARBON DIOXIDE 27 mmol/L (22-30); CHLORIDE 94 mmol/L (98-107); GFR AFRICAN-AMERICAN > 60; GLUCOSE,RANDOM 345 mg/dL (65-105); MAGNESIUM 1.5 MG/DL (1.6-2.3); PHOSPHOROUS 3.6 mg/dl (2.5-4.5); POTASSIUM 4.6 MMOL/L (3.6-5.0); SODIUM 133 mmol/l (132-148); TOTAL PROTEIN 8.4 G/DL (6.3-8.2)
[2016-11-23 11:52] LABS: RBC URINE 1 /hpf (0-3); URINE BACTERIA RARE (<OCC); URINE BILIRUBIN NEGATIVE (NEGATIVE); URINE BLOOD NEGATIVE (NEGATIVE); URINE COLOR YELLOW (YELLOW); URINE GLUCOSE (UA) >=500 mg/dL (Normal); URINE KETONE TRACE mg/dL (NEGATIVE); URINE LEUKOCYTE ESTERASE NEG Leu/uL (Negative); URINE PROTEIN NEGATIVE (NEGATIVE); URINE UROBILINOGEN 0.2-1.0 mg/dL (0.2-1.0); WBC URINE 4 /hpf (0-5)
--- NOTE | 2016-11-23 12:33 | RAD ---
HISTORY: fatigue COMPARISON: Comparison chest 07/19/2016 FINDINGS: LUNGS: Poor inspiration with low lung volumes, crowded bronchovascular markings and mild bibasilar atelectasis left greater than right. Developing left lower lobe infiltrate could be excluded followup radiographs. PLEURA: No significant pleural effusion identified, no pneumothorax apparent. CARDIOVASCULAR: Normal. OSSEOUS STRUCTURES: Mild dextroscoliosis centered in the lower thoracic region VISUALIZED UPPER ABDOMEN: Normal. OTHER FINDINGS: None. IMPRESSION: Poor inspiration with low lung volumes, crowded bronchovascular markings and mild bibasilar atelectasis left greater than right. Developing left lower lobe infiltrate could be excluded followup radiographs.
[2016-11-23 12:34] LABS: NEUTROPHIL 88 % (42-75); TOTAL CELLS COUNTED 100
[2016-11-23] MEDS ORDERED: Azithromycin 500 MG in Sodium Chloride 0.9% 250 ML IVPB STA (13:55)
[2016-11-23] MEDS ORDERED: Piperacillin/Tazobact 3.375 GM in Sodium Chloride 0.9% 100 ML IVPB STA (13:55)
[2016-11-23] MEDS ORDERED: Insulin Regular 100 units/ml ONE (17:00)
[2016-11-23] MEDS: Insulin Regular 100 units/ml SC SCH ×2 (17:06→21:52)
[2016-11-23] MEDS: Sodium Chloride 0.9% 1,000 ML IV SCH (17:33)
[2016-11-23] MEDS: Piperacillin/Tazobact 3.375 GM in Sodium Chloride 0.9% 100 ML IVPB SCH (21:46)
[2016-11-23] MEDS: Insulin NPH Human 100 Units/ml Inj SC SCH (21:53)
[2016-11-24] MEDS: Sodium Chloride 0.9% 1,000 ML IV SCH ×3 (02:47→11:37)
[2016-11-24] MEDS: Piperacillin/Tazobact 3.375 GM in Sodium Chloride 0.9% 100 ML IVPB SCH ×4 (04:15→22:22)
[2016-11-24 06:42] LABS: HEMATOCRIT 30.3 % (34.0-47.0); MEAN CELL VOLUME 88.7 fl (81.0-99.0); MEAN CORPUSCULAR HEMOGLOBIN 29.9 pg (27.0-31.0); MEAN CORPUSCULAR HGB CONC 33.7 g/dL (33.0-37.0); RED CELL DISTRIBUTION WIDTH 12.2 % (11.5-14.5); WHITE BLOOD COUNT 9.3 K/uL (4.8-10.8)
[2016-11-24] MEDS: Insulin Regular 100 units/ml SC SCH ×4 (07:17→22:11)
[2016-11-24] MEDS: Azithromycin 500 MG in Sodium Chloride 0.9% 250 ML IVPB SCH (08:18)
[2016-11-24] MEDS: levoFLOXacin 750 mg in D5W 750 MG/150 ML BAG IVPB SCH (08:19)
[2016-11-24] MEDS ORDERED: levoFLOXacin 750 mg in D5W 150 ML BAG IVPB SCH (09:00)
[2016-11-24] MEDS: Enoxaparin 40 mg Syringe SC SCH (09:59)
[2016-11-24] MEDS ORDERED: Insulin Regular 100 units/ml SC ONE (11:38)
[2016-11-24 12:26] LABS: IMMUNOGLOBULIN G 1128.3 mg/dL (700.0-1600.0)
[2016-11-24 12:27] LABS: IMMUNOGLOBULIN A 480.1 mg/dL (70.0-400.0)
--- NOTE | 2016-11-24 14:41 | RAD ---
HISTORY: F/u pneumonia COMPARISON: Chest x-ray performed 11/23/16 TECHNIQUE: Chest PA and lateral FINDINGS: LUNGS: No focal consolidation. Please note that chest x-ray has limited sensitivity for the detection of pulmonary masses. PLEURA: No significant pleural effusion identified. No definite pneumothorax . CARDIOVASCULAR: The cardiomediastinal silhouette appears within normal limits of size. OSSEOUS STRUCTURES: No acute osseous abnormality identified. VISUALIZED UPPER ABDOMEN: Unremarkable. OTHER FINDINGS: None. IMPRESSION: No focal consolidation, significant pleural effusion, or definite pneumothorax identified.
--- NOTE | 2016-11-24 16:26 | CP.PCM.HP ---
History of Present Illness - History of Present Illness History of Present Illness: CC: Weaknesses. 71 y/o F, brought by family to ER [facility] to be evaluated for weaknesses L/E, onset day [employer] with no improvement. Worsening symptoms: Fatigue, pain R-L foot , R ankle. Aggravated factor: Pt unable to walk 2nd to fatigue, weakness. Pt was discharged home on 11/22/16 from [facility] after been admitted for Hyperglycemia, DMII.in improved and stable condition, family states she had to come back to hospital due to increased weakness in her L/E unable to climb the stairs at home for the 2nd floor. Pt denied: Fever, chills, dizziness, syncope, n/v/d, abdominal pain, urinary symptoms, SOB, cough, CP, palpitation. PMHx: O/A, DMII, Diabetes Neuropathy, Dyslipidemia, HTN, Dementia-Alzheimer type, Hx of Parathyroid Adenoma with Parathyroidectomy on 09/11/14. Present on Admission - Present on Admission Any Indicators Present on Admission: No Review of Systems - Constitutional Constitutional: Weakness - EENT Eyes: Requires Corrective Lenses Ears: Other (negative) Nose/Mouth/Throat: Other (negative) - Cardiovascular Cardiovascular: Other (negative) - Respiratory Respiratory: Other (negative) - Gastrointestinal Gastrointestinal: Other (negative) - Genitourinary Genitourinary: Other (negative) - Musculoskeletal Musculoskeletal: Arthralgias, Muscle Weakness (L/E) - Integumentary Integumentary: Other (negatiove) - Neurological Neurological: Confusion, Other (forgetful) - Psychiatric Psychiatric: Confusion - Endocrine Endocrine: Other (negative) - Hematologic/Lymphatic Hematologic: Other (negative) Past Patient History - Past Medical History & Family History Past Medical History?: Yes Pertinent Family History: HTN, DMII - Past Social History Smoking Status: Never Smoked Alcohol: None Drugs: Denies Home Situation {Lives}: With Family - CARDIAC Hx Cardiac Disorders: Yes Hx Hypercholesterolemia: Yes Hx Hypertension: Yes - PULMONARY Hx Respiratory Disorders: No - NEUROLOGICAL Hx Neurological Disorder: Yes Hx Dementia: Yes (possible) - HEENT Hx HEENT Problems: No - RENAL Hx Chronic Kidney Disease: No - ENDOCRINE/METABOLIC Hx Endocrine Disorders: Yes Hx Diabetes Mellitus Type 2: Yes Hx Hyperthyroidism: Yes - HEMATOLOGICAL/ONCOLOGICAL Hx Human Immunodeficiency Virus (HIV): No - INTEGUMENTARY Hx Dermatological Problems: No - MUSCULOSKELETAL/RHEUMATOLOGICAL Hx Musculoskeletal Disorders: Yes Hx Arthritis: Yes Hx Falls: No Hx Osteoporosis: Yes - GASTROINTESTINAL Hx Gastrointestinal Disorders: No - GENITOURINARY/GYNECOLOGICAL Hx Genitourinary Disorders: No - PSYCHIATRIC Hx Psychophysiologic Disorder: No Hx Substance Use: No - SURGICAL HISTORY Hx Surgeries: Yes Other/Comment: parathyroidectomy 09/11/14 - ANESTHESIA Hx Anesthesia: Yes Hx Anesthesia Reactions: No Hx Malignant Hyperthermia: No Meds Allergies/Adverse Reactions: Allergies Allergy/AdvReac Type Severity Reaction Status Date / Time No Known Allergies Allergy Verified 11/23/16 08:57 Physical Exam - Constitutional Appears: No Acute Distress, Chronically Ill - Head Exam Head Exam: NORMAL INSPECTION - Eye Exam Eye Exam: PERRL - ENT Exam ENT Exam: Normal Exam - Neck Exam Neck exam: Positive for: Normal Inspection - Cardiovascular Exam Cardiovascular Exam: REGULAR RHYTHM - GI/Abdominal Exam GI & Abdominal Exam: Normal Bowel Sounds, Soft - Back Exam Back exam: NORMAL INSPECTION - Neurological Exam Neurological exam: Alert, Oriented x3 Additional comments: Forgetful at times, no focal motor sensory deficit. - Psychiatric Exam Psychiatric exam: Normal Mood - Skin Skin Exam: Warm Results - Vital Signs Recent Vital Signs: Last Vital Signs Temp 98.4 F 11/24/16 16:18 Pulse 67 11/24/16 16:18 Resp 20 11/24/16 16:18 BP 106/55 L 11/24/16 16:18 Pulse Ox 98 11/24/16 16:18 reviewed Maximo - Labs Result Diagrams: 11/25/16 05:25 11/25/16 05:25 Labs: Laboratory Results - last 24 hr 11/23/16 11/23/16 11/24/16 14:57 21:04 05:30 WBC 9.3 RBC 3.41 L Hgb 10.2 L Hct 30.3 L MCV 88.7 MCH 29.9 MCHC 33.7 RDW 12.2 Plt Count 171 POC Glucose (mg/dL) 329 H 279 H 11/24/16 11/24/16 11/24/16 05:56 11:34 13:12 WBC RBC Hgb Hct MCV MCH MCHC RDW Plt Count POC Glucose (mg/dL) 278 H 417 H* 390 H 11/24/16 15:33 WBC RBC Hgb Hct MCV MCH MCHC RDW Plt Count POC Glucose (mg/dL) 382 H reviewed [facility] - Imaging and Cardiology Chest x-ray Status: Report reviewed by me (Maximo) Assessment & Plan (1) Weakness of both lower extremities Status: Acute (2) Hyperglycemia Status: Acute Priority: High (3) DM2 (diabetes mellitus, type 2) Status: Chronic Priority: High - Assessment and Plan (Free Text) Plan: F/U Blood C-S, Continue Zosyn, Levaquin, Zithromax, Insulin and rest of Tx. ID consult. - Date & Time Date: 11/24/16 Time: 12:20
[2016-11-24] MEDS: Insulin NPH Human 100 Units/ml Inj SC SCH (22:22)
[2016-11-25] MEDS: Piperacillin/Tazobact 3.375 GM in Sodium Chloride 0.9% 100 ML IVPB SCH ×4 (04:11→22:08)
[2016-11-25] MEDS: Insulin Regular 100 units/ml SC SCH ×4 (06:43→22:07)
[2016-11-25 06:57] LABS: BLOOD UREA NITROGEN 10 mg/dl (7-17); CALCIUM 7.7 mg/dL (8.4-10.2); CARBON DIOXIDE 24 mmol/L (22-30); CHLORIDE 108 mmol/L (98-107); GFR AFRICAN-AMERICAN > 60; GLUCOSE,RANDOM 167 mg/dL (65-105); POTASSIUM 3.7 MMOL/L (3.6-5.0); SODIUM 141 mmol/l (132-148)
[2016-11-25 07:01] LABS: HEMATOCRIT 27.7 % (34.0-47.0); MEAN CELL VOLUME 88.4 fl (81.0-99.0); MEAN CORPUSCULAR HEMOGLOBIN 30.1 pg (27.0-31.0); MEAN CORPUSCULAR HGB CONC 34.1 g/dL (33.0-37.0); WHITE BLOOD COUNT 6.2 K/uL (4.8-10.8)
[2016-11-25] MEDS: levoFLOXacin 750 mg in D5W 750 MG/150 ML BAG IVPB SCH (08:45)
[2016-11-25] MEDS: Enoxaparin 40 mg Syringe SC SCH (08:45)
[2016-11-25] MEDS: Azithromycin 500 MG in Sodium Chloride 0.9% 250 ML IVPB SCH (08:45)
--- NOTE | 2016-11-25 11:55 | CARD ---
APPROVED REPORT EKG Measurement Heart [id number] [id number] <Conclusion> Normal sinus rhythm Low voltage QRS Borderline ECG
--- NOTE | 2016-11-25 17:58 | CP.PCM.PN ---
Subjective - Date & Time of Evaluation Date of Evaluation: 11/25/16 Time of Evaluation: 12:30 - Subjective Subjective: F/U Weakness L/E Tmax 102.0 in Am, c/o of pain in R arm and R elbow. Objective - Vital Signs/Intake and Output Vital Signs (last 24 hours): Temp Pulse Resp BP Pulse Ox 99.0 F 67 18 116/65 97 11/25/16 16:02 11/25/16 16:02 11/25/16 16:02 11/25/16 16:02 11/25/16 16:02 - Medications Medications: Current Medications Acetaminophen (Tylenol 325mg Tab) 650 mg PO Q4 PRN PRN Reason: Pain, moderate (4-7) Last Admin: 11/24/16 11:17 Dose: 650 mg Acetaminophen (Tylenol 325mg Tab) 650 mg PO Q6 PRN PRN Reason: Fever >100.4 F Last Admin: 11/24/16 23:58 Dose: 650 mg Enoxaparin Sodium (Lovenox) 40 mg SC DAILY [facility] PRN Reason: Protocol Last Admin: 11/25/16 08:45 Dose: 40 mg Azithromycin 500 mg/ Sodium (Chloride) 250 mls @ 250 mls/hr IVPB DAILY [facility] Last Admin: 11/25/16 08:45 Dose: 250 mls/hr Piperacillin Sod/Tazobactam (Sod 3.375 gm/ Sodium Chloride) 100 mls @ 100 mls/ hr IVPB Q6 [facility] Last Admin: 11/25/16 16:26 Dose: 100 mls/hr Levofloxacin/Dextrose (Levaquin 750mg) 750 mg in 150 mls @ 150 mls/hr IVPB DAILY [facility] Last Admin: 11/25/16 08:45 Dose: 150 mls/hr Insulin Human NPH (Humulin N) 12 units SC HS [facility] Last Admin: 11/24/16 22:22 Dose: 12 units Insulin Human Regular (Humulin R) 0 units SC [facility] PRN Reason: Protocol Last Admin: 11/25/16 16:26 Dose: 3 units Tramadol HCl (Ultram) 50 mg PO Q6 PRN PRN Reason: Pain, moderate (4-7) Last Admin: 11/25/16 10:32 Dose: 50 mg - Labs Labs: 11/25/16 05:25 11/25/16 05:25 - Constitutional Appears: No Acute Distress - Head Exam Head Exam: NORMAL INSPECTION - Eye Exam Eye Exam: PERRL - ENT Exam ENT Exam: Normal Oropharynx - Neck Exam Neck Exam: Normal Inspection - Cardiovascular Exam Cardiovascular Exam: REGULAR RHYTHM - GI/Abdominal Exam GI & Abdominal Exam: Soft, Normal Bowel Sounds - Extremities Exam Extremities Exam: Normal Inspection - Neurological Exam Neurological Exam: Alert, Oriented x3 Additional comments: Forgetful at times, no focal motor sensory deficit. - Psychiatric Exam Psychiatric exam: Normal Mood - Skin Skin Exam: Warm Assessment and Plan (1) Weakness of both lower extremities Status: Acute (2) Hyperglycemia Status: Acute (3) DM2 (diabetes mellitus, type 2) Status: Chronic (4) Elbow pain, right Status: Acute (5) Hand pain, right Status: Acute - Assessment and Plan (Free Text) Plan: Continue current abx , monitor TMAx, F/U elbow and wrist X-Ray, ID consult
--- NOTE | 2016-11-25 19:20 | CP.PCM.CON ---
History of Present Illness - History of Present Illness History of Present Illness: 71 y/o F with hx of osteoporosis, dementia, hyperglycemia, and DM, who was discharged from hospital yesterday, presenting with generalized fatigue. Daughter and granddaughter reports that when patient was discharged yesterday she was unable to walk unassisted. They report that the is complaining of "aching pain" "all over." Denies chest pain, shortness of breath, fever, cough , uri complaints, or focal weakness. c/o swelling /pain right wrist - Medical History PMH: Arthritis, Dementia (possible), Diabetes (type I), HTN, Hypercholesterolemia, Hyperthyroidism, Osteoporosis Denies: HIV, Chronic Kidney Disease Review of Systems - Review of Systems Systems not reviewed;Unavailable: Altered Mental Status - Constitutional Constitutional: As Per HPI - EENT Eyes: absent: As Per HPI, Blind Spots, Blurred Vision, Change in Vision, Decreased Night Vision, Diplopia, Discharge, Dry Eye, Exophthalmos, Floaters, Irritation, Itchy Eyes, Loss of Peripheral Vision, Pain, Photophobia, Requires Corrective Lenses, Sees Flashes, Spots in Vision, Tunnel Vision, Other Visual Disturbances, Loss of Vision, Other Ears: absent: As Per HPI, Decreased Hearing, Ear Discharge, Ear Pain, Tinnitus, Abnormal Hearing, Disequilibrium, Dizziness, Other Nose/Mouth/Throat: absent: As Per HPI, Epistaxis, Nasal Congestion, Nasal Discharge, Nasal Obstruction, Nasal Trauma, Nose Pain, Post Nasal Drip, Sinus Pain, Sinus Pressure, Bleeding Gums, Change in Voice, Dental Pain, Dry Mouth, Dysphagia, Halitosis, Hoarsness, Lip Swelling, Mouth Lesions, Mouth Pain, Odynophagia, Sore Throat, Throat Swelling, Tongue Swelling, Facial Pain, Neck Pain, Neck Mass, Other - Breasts Breasts: absent: As Per HPI, Change in Shape, Mass, Pain, Nipple Discharge, Nipple Inversion, Skin Changes, Swelling, Other - Cardiovascular Cardiovascular: absent: As Per HPI, Acrocyanosis, Chest Pain, Chest Pain at Rest , Chest Pain with Activity, Claudication, Diaphoresis, Dyspnea, Dyspnea on Exertion, Edema, Irregular Heart Rhythm, Pain Radiating to Arm/Neck/Jaw, Leg Edema, Leg Ulcers, Lightheadedness, Orthopnea, Palpitations, Paroxysmal Nocturnal Dyspnea, Pedal Edema, Radiating Pain, Rapid Heart Rate, Slow Heart Rate, Syncope, Other - Respiratory Respiratory: As Per HPI - Gastrointestinal Gastrointestinal: absent: As Per HPI, Abdominal Pain, Belching, Bloating, Change in Bowel Habits, Change in Stool Character, Coffee Ground Emesis, Constipation, Cramping, Diarrhea, Dyspepsia, Dysphagia, Early Satiety, Excessive Flatus, Fecal Incontinence, Heartburn, Hematemesis, Hematochezia, Loose Stools, Melena, Nausea, Odynophagia, Temesmus, Vomiting, Other - Genitourinary Genitourinary: absent: As Per HPI, Change in Urinary Stream, Difficulty Urinating, Dysuria, Flank Pain, Hematuria, Pyuria, Nocturia, Urinary Incontinence, Urinary Frequency, Urinary Hesitance, Urinary Urgency, Voiding Freq/Small Amts, Freq UTI, Hx Renal/Bladder Calculi, Hx /Renal Surgery, Bladder Distension, Other - Reproductive: Female Reproductive:Female: absent: As Per HPI, Amenorrhea, Amenorrhea/ Control, Currently Menstual, Cycle <21 Days, Cycle >35 Days, Cycle Variable, Menses 1-7 Days, Menses >/= 8 Days, Menses Variable, Cycle > 4 Weeks Between, No Menses for 6 Months, Heavy Menses, Light Menses, Normal Menses, Spotting Between Cycles , S/P Hysterectomy, Menopausal, Post Menopausal, Premenarche, Abnormal Vaginal Bleeding, Dysmenorrhea, Dyspareunia, Genital Lesions, Genital Pruritis, Pelvic Pain, Prolapse Symptoms, Sexual Dysfunction, Vaginal Discharge, Vaginal Dryness , Vaginal Odor, Vaginal Pruritis, Other - Menstruation Menstruation: absent: As Per HPI, Amenorrhea, Amenorrhea/ Control, Currently Menstual, Cycle <21 Days, Cycle >35 Days, Cycle Variable, Menses 1-7 Days, Menses >/= 8 Days, Menses Variable, Cycle > 4 Weeks Between, No Menses for 6 Months, Heavy Menses, Light Menses, Normal Menses, Spotting Between Cycles , S/P Hysterectomy, Menopausal, Post Menopausal, Premenarche, Abnormal Vaginal Bleeding, Dysmenorrhea, Other - Musculoskeletal Musculoskeletal: absent: As Per HPI, Abnormal Gait, Arthralgias, Atrophy, Back Pain, Deformity, Joint Swelling, Limited Range of Motion, Loss of Height, Muscle Cramps, Muscle Weakness, Myalgias, Neck Pain, Numbness, Radiating Pain into Limb, Stiffness, Tingling, Other - Integumentary Integumentary: absent: As Per HPI, Acne, Alopecia, Bleeding Lesions, Change in Hair, Change in Nails, Change in Pigmentation, Changing Lesions, Dry Skin, Erythema, Furuncle, Hirsutism, Lesions, New Lesions, Non-Healing Lesions, Photosensitivity, Pruritus, Rash, Skin Pain, Skin Ulcer, Sores, Striae, Swelling , Unusual Bruising, Wounds, Jaundice, Other - Neurological Neurological: absent: As Per HPI, Abnormal Gait, Abnormal Hearing, Abnormal Movements, Abnormal Speech, Behavioral Changes, Burning Sensations, Confusion, Convulsions, Disequilibrium, Dizziness, Numbness, Focal Weakness, Frequent Falls , Headaches, Lack of Coordination, Loss of Vision, Memory Loss, Paresthesias, Radicular Pain, Restless Legs, Sensory Deficit, Syncope, Tingling, Tremor, Vertigo, Weakness, Other Visual Disturbances, Other - Psychiatric Psychiatric: absent: As Per HPI, Abnormal Sleep Pattern, Anhedonia, Anxiety, Auditory Hallucinations, Behavioral Changes, Change in Appetite, Change in Libido, Confusion, Depression, Difficulty Concentrating, Hallucinations, Homicidal Ideation, Hopelessness, Irritability, Memory Loss, Mood Swings, Panic Attacks, Paranoia, Suicidal Ideation, Visual Hallucinations, Tactile Hallucinations, Other - Endocrine Endocrine: absent: As Per HPI, Change in Body Appearance, Change in Libido, Cold Intolorance, Deepening of Voice, Excessive Sweating, Fatigue, Flushing, Heat Intolorance, Increase in Ring/Shoe/Hat Size, Palpitations, Polydipsia, Polyphagia, Polyuria, Other - Hematologic/Lymphatic Hematologic: absent: As Per HPI, Easy Bleeding, Easy Bruising, Lymphadenopathy, Other Past Patient History - Past Medical History & Family History Past Medical History?: Yes - Past Social History Smoking Status: Never Smoked Alcohol: None Drugs: Denies Home Situation {Lives}: With Family - CARDIAC Hx Cardiac Disorders: Yes Hx Hypercholesterolemia: Yes Hx Hypertension: Yes - PULMONARY Hx Respiratory Disorders: No - NEUROLOGICAL Hx Neurological Disorder: Yes Hx Dementia: Yes (possible) - HEENT Hx HEENT Problems: No - RENAL Hx Chronic Kidney Disease: No - ENDOCRINE/METABOLIC Hx Endocrine Disorders: Yes Hx Diabetes Mellitus Type 2: Yes Hx Hyperthyroidism: Yes - HEMATOLOGICAL/ONCOLOGICAL Hx Human Immunodeficiency Virus (HIV): No - INTEGUMENTARY Hx Dermatological Problems: No - MUSCULOSKELETAL/RHEUMATOLOGICAL Hx Musculoskeletal Disorders: Yes Hx Arthritis: Yes Hx Falls: No Hx Osteoporosis: Yes - GASTROINTESTINAL Hx Gastrointestinal Disorders: No - GENITOURINARY/GYNECOLOGICAL Hx Genitourinary Disorders: No - PSYCHIATRIC Hx Psychophysiologic Disorder: No Hx Substance Use: No - SURGICAL HISTORY Hx Surgeries: Yes Other/Comment: parathyroidectomy 09/11/14 - ANESTHESIA Hx Anesthesia: Yes Hx Anesthesia Reactions: No Hx Malignant Hyperthermia: No Meds Allergies/Adverse Reactions: Allergies Allergy/AdvReac Type Severity Reaction Status Date / Time No Known Allergies Allergy Verified 11/23/16 08:57 - Medications Medications: Current Medications Acetaminophen (Tylenol 325mg Tab) 650 mg PO Q4 PRN PRN Reason: Pain, moderate (4-7) Last Admin: 11/24/16 11:17 Dose: 650 mg Acetaminophen (Tylenol 325mg Tab) 650 mg PO Q6 PRN PRN Reason: Fever >100.4 F Last Admin: 11/24/16 23:58 Dose: 650 mg Enoxaparin Sodium (Lovenox) 40 mg SC DAILY JANNET PRN Reason: Protocol Last Admin: 11/25/16 08:45 Dose: 40 mg Azithromycin 500 mg/ Sodium (Chloride) 250 mls @ 250 mls/hr IVPB DAILY [facility] Last Admin: 11/25/16 08:45 Dose: 250 mls/hr Piperacillin Sod/Tazobactam (Sod 3.375 gm/ Sodium Chloride) 100 mls @ 100 mls/ hr IVPB Q6 [facility] Last Admin: 11/25/16 16:26 Dose: 100 mls/hr Levofloxacin/Dextrose (Levaquin 750mg) 750 mg in 150 mls @ 150 mls/hr IVPB DAILY [facility] Last Admin: 11/25/16 08:45 Dose: 150 mls/hr Insulin Human NPH (Humulin N) 12 units SC HS [facility]ANNET Last Admin: 11/24/16 22:22 Dose: 12 units Insulin Human Regular (Humulin R) 0 units SC ACHS [facility]ANNET PRN Reason: Protocol Last Admin: 11/25/16 16:26 Dose: 3 units Tramadol HCl (Ultram) 50 mg PO Q6 PRN PRN Reason: Pain, moderate (4-7) Last Admin: 11/25/16 10:32 Dose: 50 mg Physical Exam - Constitutional Appears: Confused, Chronically Ill - Head Exam Head Exam: ATRAUMATIC, NORMAL INSPECTION, NORMOCEPHALIC - Eye Exam Eye Exam: EOMI, PERRL. absent: Scleral icterus - ENT Exam ENT Exam: Mucous Membranes Dry, Normal External Ear Exam, Normal Oropharynx - Neck Exam Neck exam: Negative for: Lymphadenopathy, Thyromegaly - Respiratory Exam Respiratory Exam: Decreased Breath Sounds, Clear to Auscultation Bilateral - Cardiovascular Exam Cardiovascular Exam: REGULAR RHYTHM, +S1, +S2 - GI/Abdominal Exam GI & Abdominal Exam: Diminished Bowel Sounds, Soft. absent: Tenderness - Rectal Exam Rectal Exam: Deferred - Exam Exam: NORMAL INSPECTION - Extremities Exam Extremities exam: Positive for: pedal pulses present. Negative for: calf tenderness, pedal edema, tenderness - Back Exam Back exam: absent: CVA tenderness (L), CVA tenderness (R), paraspinal tenderness - Neurological Exam Neurological exam: Alert, Altered, CN II-XII Intact - Psychiatric Exam Psychiatric exam: Normal Mood - Skin Skin Exam: Dry Results - Vital Signs Recent Vital Signs: Last Vital Signs Temp 99.0 F 11/25/16 16:02 Pulse 67 11/25/16 16:02 Resp 18 11/25/16 16:02 BP 116/65 11/25/16 16:02 Pulse Ox 97 11/25/16 16:02 - Labs Result Diagrams: 11/25/16 05:25 11/25/16 05:25 Labs: Laboratory Results - last 24 hr 11/24/16 11/25/16 11/25/16 21:25 05:25 05:25 WBC 6.2 RBC 3.14 L Hgb 9.4 L Hct 27.7 L MCV 88.4 MCH 30.1 MCHC 34.1 RDW 12.0 Plt Count 177 Sodium 141 Potassium 3.7 Chloride 108 H Carbon Dioxide 24 Anion Gap 13 BUN 10 Creatinine 0.7 Est GFR ( Amer) > 60 Est GFR (Non-Af Amer) > 60 POC Glucose (mg/dL) 134 H Random Glucose 167 H Calcium 7.7 L 11/25/16 11/25/16 11/25/16 05:47 10:52 16:06 WBC RBC Hgb Hct MCV MCH MCHC RDW Plt Count Sodium Potassium Chloride Carbon Dioxide Anion Gap BUN Creatinine Est GFR ( Amer) Est GFR (Non-Af Amer) POC Glucose (mg/dL) 180 H 259 H 207 H Random Glucose Calcium Assessment & Plan - Assessment and Plan (Free Text) Assessment: fever leukocytosis wrist pain r/o gout r/o septic arthritis consider arthrocentesis iv antibiotics
[2016-11-25] MEDS: Insulin NPH Human 100 Units/ml Inj SC SCH (22:08)
[2016-11-26] MEDS: Piperacillin/Tazobact 3.375 GM in Sodium Chloride 0.9% 100 ML IVPB SCH ×4 (04:18→22:03)
[2016-11-26] MEDS: Insulin Regular 100 units/ml SC SCH ×4 (06:42→22:02)
[2016-11-26] MEDS: Enoxaparin 40 mg Syringe SC SCH (10:07)
--- NOTE | 2016-11-26 11:38 | RAD ---
PROCEDURE: Right Wrist Radiographs. HISTORY: swelling and pain COMPARISON: 09/17/2014 FINDINGS: BONES: There is diffuse bone demineralization.. No acute fracture. JOINTS: Normal. The proximal and distal carpal rows are maintained. SOFT TISSUES: Normal. OTHER FINDINGS: None. IMPRESSION: No acute fracture or dislocation.
--- NOTE | 2016-11-26 11:39 | RAD ---
PROCEDURE: Radiographs of the right elbow. HISTORY: Swelling and pain COMPARISON: No prior. FINDINGS: BONES: There is diffuse bone demineralization.. No acute fracture. JOINTS: Normal. No osteoarthritis. SOFT TISSUES: Normal. JOINT EFFUSION: There is a small joint effusion. . OTHER FINDINGS: None. IMPRESSION: No acute fracture or dislocation. Small joint effusion.
--- NOTE | 2016-11-26 13:59 | CP.PCM.PN ---
Subjective - Date & Time of Evaluation Date of Evaluation: 11/26/16 Time of Evaluation: 10:00 - Subjective Subjective: fever leukocytosis wrist pain r/o gout r/o septic arthritis consider arthrocentesis iv antibiotics Objective - Vital Signs/Intake and Output Vital Signs (last 24 hours): Temp Pulse Resp BP Pulse Ox 97.7 F 65 18 116/61 97 11/26/16 08:00 11/26/16 08:00 11/26/16 08:00 11/26/16 08:00 11/26/16 08:00 - Medications Medications: Current Medications Acetaminophen (Tylenol 325mg Tab) 650 mg PO Q4 PRN PRN Reason: Pain, moderate (4-7) Last Admin: 11/24/16 11:17 Dose: 650 mg Acetaminophen (Tylenol 325mg Tab) 650 mg PO Q6 PRN PRN Reason: Fever >100.4 F Last Admin: 11/24/16 23:58 Dose: 650 mg Enoxaparin Sodium (Lovenox) 40 mg SC DAILY [facility]ANNET PRN Reason: Protocol Last Admin: 11/26/16 10:07 Dose: 40 mg Azithromycin 500 mg/ Sodium (Chloride) 250 mls @ 250 mls/hr IVPB DAILY [facility] Last Admin: 11/25/16 08:45 Dose: 250 mls/hr Piperacillin Sod/Tazobactam (Sod 3.375 gm/ Sodium Chloride) 100 mls @ 100 mls/ hr IVPB Q6 [facility] Last Admin: 11/26/16 04:18 Dose: 100 mls/hr Levofloxacin/Dextrose (Levaquin 750mg) 750 mg in 150 mls @ 150 mls/hr IVPB DAILY [facility] Last Admin: 11/25/16 08:45 Dose: 150 mls/hr Insulin Human NPH (Humulin N) 12 units SC HS [facility] Last Admin: 11/25/16 22:08 Dose: 12 units Insulin Human Regular (Humulin R) 0 units SC ACHS JANNET PRN Reason: Protocol Last Admin: 11/26/16 12:55 Dose: 6 units Tramadol HCl (Ultram) 50 mg PO Q6 PRN PRN Reason: Pain, moderate (4-7) Last Admin: 11/25/16 10:32 Dose: 50 mg - Labs Labs: 11/25/16 05:25 11/25/16 05:25 - Constitutional Appears: Non-toxic, Cachectic - Head Exam Head Exam: NORMOCEPHALIC - Eye Exam Eye Exam: EOMI - ENT Exam ENT Exam: Mucous Membranes Dry - Neck Exam Neck Exam: absent: Lymphadenopathy - Respiratory Exam Respiratory Exam: Decreased Breath Sounds - Cardiovascular Exam Cardiovascular Exam: REGULAR RHYTHM Assessment and Plan - Assessment and Plan (Free Text) Plan: may need ortho eval
[2016-11-26] MEDS: levoFLOXacin 750 mg in D5W 750 MG/150 ML BAG IVPB SCH (15:15)
[2016-11-26] MEDS: Azithromycin 500 MG in Sodium Chloride 0.9% 250 ML IVPB SCH (15:16)
--- NOTE | 2016-11-26 15:24 | CP.PCM.PN ---
Subjective - Date & Time of Evaluation Date of Evaluation: 11/26/16 Time of Evaluation: 12:20 - Subjective Subjective: F/U Weakness L/E. Pt c/o of pain in R elbow, pain swelling in R arm., weakness walking in the R lower extremity, yesterday was c/o of numbness in the R-L foot soul but today is c/o of pain in the R foot only with difficultly to walk. Objective - Vital Signs/Intake and Output Vital Signs (last 24 hours): Temp Pulse Resp BP Pulse Ox 97.7 F 65 18 116/61 97 11/26/16 08:00 11/26/16 08:00 11/26/16 08:00 11/26/16 08:00 11/26/16 08:00 - Medications Medications: Current Medications Acetaminophen (Tylenol 325mg Tab) 650 mg PO Q4 PRN PRN Reason: Pain, moderate (4-7) Last Admin: 11/24/16 11:17 Dose: 650 mg Acetaminophen (Tylenol 325mg Tab) 650 mg PO Q6 PRN PRN Reason: Fever >100.4 F Last Admin: 11/24/16 23:58 Dose: 650 mg Enoxaparin Sodium (Lovenox) 40 mg SC DAILY [facility]ANNET PRN Reason: Protocol Last Admin: 11/26/16 10:07 Dose: 40 mg Piperacillin Sod/Tazobactam (Sod 3.375 gm/ Sodium Chloride) 100 mls @ 100 mls/ hr IVPB Q6 [facility] Last Admin: 11/26/16 15:14 Dose: 100 mls/hr Levofloxacin/Dextrose (Levaquin 750mg) 750 mg in 150 mls @ 150 mls/hr IVPB DAILY [facility] Last Admin: 11/26/16 15:15 Dose: 150 mls/hr Insulin Human NPH (Humulin N) 12 units SC HS [facility]ANNET Last Admin: 11/25/16 22:08 Dose: 12 units Insulin Human Regular (Humulin R) 0 units SC ACHS JANNET PRN Reason: Protocol Last Admin: 11/26/16 12:55 Dose: 6 units Tramadol HCl (Ultram) 50 mg PO Q6 PRN PRN Reason: Pain, moderate (4-7) Last Admin: 11/25/16 10:32 Dose: 50 mg - Labs Labs: 11/25/16 05:25 11/25/16 05:25 - Constitutional Appears: No Acute Distress - Head Exam Head Exam: NORMAL INSPECTION - Eye Exam Eye Exam: PERRL - ENT Exam ENT Exam: Normal Oropharynx - Neck Exam Neck Exam: Normal Inspection - Respiratory Exam Respiratory Exam: NORMAL BREATHING PATTERN - Cardiovascular Exam Cardiovascular Exam: REGULAR RHYTHM - GI/Abdominal Exam GI & Abdominal Exam: Soft, Normal Bowel Sounds - Extremities Exam Extremities Exam: Tenderness (R foot.) - Neurological Exam Neurological Exam: Alert, Oriented x3 Additional comments: Forgetful at times,no focal motor sensory deficit. - Psychiatric Exam Psychiatric exam: Normal Mood - Skin Skin Exam: Warm Assessment and Plan (1) Weakness of both lower extremities Status: Acute (2) DM2 (diabetes mellitus, type 2) Status: Chronic (3) Hyperglycemia Status: Acute (4) Right foot pain Status: Acute (5) Elbow pain, right Status: Acute (6) Hand pain, right Status: Acute - Assessment and Plan (Free Text) Plan: Elbows and wrist X-Rays were negative for Fx. Continue current Tx. ID consult appreciated.
--- NOTE | 2016-11-26 19:00 | RAD ---
PROCEDURE: Right Foot Radiographs. HISTORY: Foot pain COMPARISON: None. FINDINGS: BONES: There is no acute fracture. JOINTS: Minimal hallux valgus deformity. There is irregular lucency at the medial base of the 2nd proximal phalanx with loss of the normal cortical margin. This may be artifact. However, additional radiography with an oblique view is recommended. The examination is limited by inclusion of only AP and lateral radiography. The remaining joint spaces and articular surfaces are intact. SOFT TISSUES: Normal. OTHER FINDINGS: None. IMPRESSION: Loss of normal cortical outline the medial base of the 2nd proximal phalanx. Recommend additional radiography with an oblique view of the right foot.
[2016-11-26] MEDS: Insulin NPH Human 100 Units/ml Inj SC SCH (22:02)
[2016-11-27] MEDS: Piperacillin/Tazobact 3.375 GM in Sodium Chloride 0.9% 100 ML IVPB SCH ×3 (04:26→22:28)
[2016-11-27 05:56] LABS: LYME DISEASE SCREEN <0.90 index
[2016-11-27] MEDS: Insulin Regular 100 units/ml SC SCH ×3 (06:54→22:24)
[2016-11-27] MEDS ORDERED: Piperacillin/Tazobact 3.375 gm Inj IVPB ONE (09:00)
[2016-11-27] MEDS ORDERED: levoFLOXacin 750 mg in D5W 150 ML BAG IVPB ONE (09:00)
[2016-11-27] MEDS ORDERED: Enoxaparin 40 mg Syringe ONE (09:00)
[2016-11-27] MEDS ORDERED: Insulin NPH Human 100 Units/ml Inj SC ONE (09:00)
[2016-11-27] MEDS: Enoxaparin 40 mg Syringe SC SCH (09:31)
[2016-11-27] MEDS: levoFLOXacin 750 mg in D5W 750 MG/150 ML BAG IVPB SCH (09:32)
--- NOTE | 2016-11-27 21:55 | CP.PCM.PN ---
Subjective - Date & Time of Evaluation Date of Evaluation: 11/27/16 Time of Evaluation: 14:00 - Subjective Subjective: F/U Weakness L/E. Pt walking well, no pain in R foot, decreased pain in R wrist and elbow. Objective - Vital Signs/Intake and Output Vital Signs (last 24 hours): Temp Pulse Resp BP Pulse Ox 98.2 F 68 18 119/67 98 11/27/16 08:56 11/27/16 08:56 11/27/16 08:56 11/27/16 08:56 11/27/16 08:56 - Medications Medications: Current Medications Acetaminophen (Tylenol 325mg Tab) 650 mg PO Q4 PRN PRN Reason: Pain, moderate (4-7) Last Admin: 11/24/16 11:17 Dose: 650 mg Acetaminophen (Tylenol 325mg Tab) 650 mg PO Q6 PRN PRN Reason: Fever >100.4 F Last Admin: 11/24/16 23:58 Dose: 650 mg Enoxaparin Sodium (Lovenox) 40 mg SC DAILY JANNET PRN Reason: Protocol Last Admin: 11/27/16 09:31 Dose: 40 mg Glipizide (Glucotrol) 10 mg PO BIDAC JANNET Piperacillin Sod/Tazobactam (Sod 3.375 gm/ Sodium Chloride) 100 mls @ 100 mls/ hr IVPB Q6 [facility] Last Admin: 11/27/16 09:49 Dose: 100 mls/hr Levofloxacin/Dextrose (Levaquin 750mg) 750 mg in 150 mls @ 150 mls/hr IVPB DAILY [facility] Last Admin: 11/27/16 09:32 Dose: 150 mls/hr Insulin Human NPH (Humulin N) 20 units SC HS JANNET Insulin Human Regular (Humulin R) 0 units SC ACHS JANNET PRN Reason: Protocol Last Admin: 11/27/16 11:53 Dose: 8 units Metformin HCl (Glucophage) 500 mg PO BIDWM JANNET Tramadol HCl (Ultram) 50 mg PO Q6 PRN PRN Reason: Pain, moderate (4-7) Last Admin: 11/25/16 10:32 Dose: 50 mg - Labs Labs: 11/25/16 05:25 11/25/16 05:25 - Constitutional Appears: No Acute Distress - Head Exam Head Exam: NORMAL INSPECTION - Eye Exam Eye Exam: PERRL - ENT Exam ENT Exam: Normal Oropharynx - Neck Exam Neck Exam: Normal Inspection - Respiratory Exam Respiratory Exam: NORMAL BREATHING PATTERN - Cardiovascular Exam Cardiovascular Exam: REGULAR RHYTHM - GI/Abdominal Exam GI & Abdominal Exam: Soft, Normal Bowel Sounds - Extremities Exam Extremities Exam: Tenderness (minimal R had, R elbow) Additional comments: Minimal swelling R hand. - Back Exam Back Exam: NORMAL INSPECTION - Neurological Exam Neurological Exam: Alert, Oriented x3 Additional comments: Forgetful at times, no focal motor sensory deficit. - Psychiatric Exam Psychiatric exam: Normal Mood - Skin Skin Exam: Warm Assessment and Plan (1) Weakness of both lower extremities Status: Acute (2) DM2 (diabetes mellitus, type 2) Status: Chronic (3) Hyperglycemia Status: Acute (4) Hand pain, right Status: Acute (5) Right foot pain Status: Acute (6) Elbow pain, right Status: Acute - Assessment and Plan (Free Text) Plan: Continue Levaquin, Zosyn and rest of Tx.
[2016-11-27] MEDS: Insulin NPH Human 100 Units/ml Inj SC SCH (22:24)
[2016-11-28] MEDS: Piperacillin/Tazobact 3.375 GM in Sodium Chloride 0.9% 100 ML IVPB SCH ×4 (04:19→21:54)
[2016-11-28] MEDS: Insulin Regular 100 units/ml SC SCH ×4 (06:38→21:37)
[2016-11-28] MEDS: Enoxaparin 40 mg Syringe SC SCH (08:24)
[2016-11-28] MEDS: levoFLOXacin 750 mg in D5W 750 MG/150 ML BAG IVPB SCH (09:19)
--- NOTE | 2016-11-28 12:52 | CP.PCM.PN ---
Subjective - Date & Time of Evaluation Date of Evaluation: 11/28/16 Time of Evaluation: 09:00 - Subjective Subjective: await uric acid level rx in progress Objective - Vital Signs/Intake and Output Vital Signs (last 24 hours): Temp Pulse Resp BP Pulse Ox 97.7 F 58 L 20 116/63 98 11/28/16 08:20 11/28/16 08:20 11/28/16 08:20 11/28/16 08:20 11/28/16 08:20 - Medications Medications: Current Medications Acetaminophen (Tylenol 325mg Tab) 650 mg PO Q4 PRN PRN Reason: Pain, moderate (4-7) Last Admin: 11/24/16 11:17 Dose: 650 mg Acetaminophen (Tylenol 325mg Tab) 650 mg PO Q6 PRN PRN Reason: Fever >100.4 F Last Admin: 11/24/16 23:58 Dose: 650 mg Enoxaparin Sodium (Lovenox) 40 mg SC DAILY JANNET PRN Reason: Protocol Last Admin: 11/28/16 08:24 Dose: 40 mg Glipizide (Glucotrol) 10 mg PO BIDAC [facility] Last Admin: 11/28/16 08:24 Dose: 10 mg Piperacillin Sod/Tazobactam (Sod 3.375 gm/ Sodium Chloride) 100 mls @ 100 mls/ hr IVPB Q6 [facility] Last Admin: 11/28/16 09:17 Dose: 100 mls/hr Levofloxacin/Dextrose (Levaquin 750mg) 750 mg in 150 mls @ 150 mls/hr IVPB DAILY [facility] Last Admin: 11/28/16 09:19 Dose: 150 mls/hr Insulin Human NPH (Humulin N) 20 units SC HS [facility] Last Admin: 11/27/16 22:24 Dose: 20 units Insulin Human Regular (Humulin R) 0 units SC ACHS JANNET PRN Reason: Protocol Last Admin: 11/28/16 12:49 Dose: 8 units Metformin HCl (Glucophage) 500 mg PO BIDWM [facility] Last Admin: 11/28/16 08:24 Dose: 500 mg Tramadol HCl (Ultram) 50 mg PO Q6 PRN PRN Reason: Pain, moderate (4-7) Last Admin: 11/25/16 10:32 Dose: 50 mg - Labs Labs: 11/25/16 05:25 11/25/16 05:25 - Constitutional Appears: Non-toxic, Chronically Ill - Head Exam Head Exam: NORMOCEPHALIC - Eye Exam Eye Exam: PERRL. absent: Scleral icterus - ENT Exam ENT Exam: Mucous Membranes Dry, Normal External Ear Exam - Neck Exam Neck Exam: absent: Lymphadenopathy - Respiratory Exam Respiratory Exam: Decreased Breath Sounds - Cardiovascular Exam Cardiovascular Exam: REGULAR RHYTHM - GI/Abdominal Exam GI & Abdominal Exam: Distended, Soft Assessment and Plan (1) Cellulitis Status: Acute (2) Cellulitis of hand, left Status: Acute
--- NOTE | 2016-11-28 17:28 | CP.PCM.PN ---
Subjective - Date & Time of Evaluation Date of Evaluation: 11/28/16 Time of Evaluation: 12:30 - Subjective Subjective: F/U Weakness L/E. Pt with no c/o of R elbow, R hand pain, R foot pain, ambulating well. Objective - Vital Signs/Intake and Output Vital Signs (last 24 hours): Temp Pulse Resp BP Pulse Ox 98.4 F 67 18 106/64 98 11/28/16 16:12 11/28/16 16:12 11/28/16 16:12 11/28/16 16:12 11/28/16 16:12 - Medications Medications: Current Medications Acetaminophen (Tylenol 325mg Tab) 650 mg PO Q4 PRN PRN Reason: Pain, moderate (4-7) Last Admin: 11/24/16 11:17 Dose: 650 mg Acetaminophen (Tylenol 325mg Tab) 650 mg PO Q6 PRN PRN Reason: Fever >100.4 F Last Admin: 11/24/16 23:58 Dose: 650 mg Enoxaparin Sodium (Lovenox) 40 mg SC DAILY JANNET PRN Reason: Protocol Last Admin: 11/28/16 08:24 Dose: 40 mg Glipizide (Glucotrol) 10 mg PO BIDAC [facility] Last Admin: 11/28/16 16:45 Dose: 10 mg Piperacillin Sod/Tazobactam (Sod 3.375 gm/ Sodium Chloride) 100 mls @ 100 mls/ hr IVPB Q6 [facility] Last Admin: 11/28/16 16:46 Dose: 100 mls/hr Levofloxacin/Dextrose (Levaquin 750mg) 750 mg in 150 mls @ 150 mls/hr IVPB DAILY [facility] Last Admin: 11/28/16 09:19 Dose: 150 mls/hr Insulin Human NPH (Humulin N) 20 units SC HS [facility] Last Admin: 11/27/16 22:24 Dose: 20 units Insulin Human Regular (Humulin R) 0 units SC ACHS JANNET PRN Reason: Protocol Last Admin: 11/28/16 16:55 Dose: 2 units Metformin HCl (Glucophage) 500 mg PO BIDWM [facility] Last Admin: 11/28/16 16:45 Dose: 500 mg Tramadol HCl (Ultram) 50 mg PO Q6 PRN PRN Reason: Pain, moderate (4-7) Last Admin: 11/25/16 10:32 Dose: 50 mg - Labs Labs: 11/25/16 05:25 11/25/16 05:25 - Constitutional Appears: No Acute Distress - Head Exam Head Exam: NORMAL INSPECTION - Eye Exam Eye Exam: PERRL - ENT Exam ENT Exam: Normal Oropharynx - Neck Exam Neck Exam: Normal Inspection - Respiratory Exam Respiratory Exam: NORMAL BREATHING PATTERN - Cardiovascular Exam Cardiovascular Exam: REGULAR RHYTHM - GI/Abdominal Exam GI & Abdominal Exam: Soft, Normal Bowel Sounds - Extremities Exam Extremities Exam: absent: Tenderness - Neurological Exam Neurological Exam: Alert, Oriented x3 Additional comments: Forgetful at times, no focal motor sensory deficit. - Psychiatric Exam Psychiatric exam: Normal Mood - Skin Skin Exam: Warm Assessment and Plan (1) Weakness of both lower extremities Status: Acute (2) DM2 (diabetes mellitus, type 2) Status: Chronic (3) Hyperglycemia Status: Acute (4) Elbow pain, right Status: Acute (5) Hand pain, right Status: Acute (6) Right foot pain Status: Acute - Assessment and Plan (Free Text) Plan: Continue current Tx.
[2016-11-28] MEDS: Insulin NPH Human 100 Units/ml Inj SC SCH (21:40)
[2016-11-29 00:49] VITALS: PULSE 65
[2016-11-29] MEDS: Insulin Regular 100 units/ml SC SCH ×2 (06:57→12:26)
[2016-11-29 08:17] VITALS: BP 103/60; RESP 18; TEMP 98.7; O2SAT 98
[2016-11-29] MEDS: levoFLOXacin 750 mg in D5W 750 MG/150 ML BAG IVPB SCH (08:52)
[2016-11-29] MEDS: Enoxaparin 40 mg Syringe SC SCH (08:52)
[2016-11-29 11:17] LABS: CHLORIDE 101 mmol/L (98-107); POTASSIUM 3.9 MMOL/L (3.6-5.0); SODIUM 136 mmol/l (132-148)
[2016-11-29 11:20] LABS: BASO % 0.8 % (0.0-2.0); BLOOD UREA NITROGEN 12 mg/dl (7-17); CARBON DIOXIDE 27 mmol/L (22-30); EOS # 0.1 K/uL (0.0-0.7); EOS % 1.8 % (0.0-4.0); GFR AFRICAN-AMERICAN > 60; HEMATOCRIT 30.1 % (34.0-47.0); MEAN CELL VOLUME 88.7 fl (81.0-99.0); MEAN CORPUSCULAR HEMOGLOBIN 29.4 pg (27.0-31.0); MEAN CORPUSCULAR HGB CONC 33.1 g/dL (33.0-37.0); MEAN PLATELET VOLUME 7.6 fl (7.2-11.7); MONO # 0.4 K/uL (0.0-0.8); MONO % 9.5 % (0.0-10.0); NEUT # 2.9 K/uL (1.8-7.0); NEUT % 65.9 % (50.0-75.0); RED CELL DISTRIBUTION WIDTH 12.4 % (11.5-14.5); WHITE BLOOD COUNT 4.5 K/uL (4.8-10.8)
[2016-11-29 11:21] LABS: CALCIUM 8.9 mg/dL (8.4-10.2); GLUCOSE,RANDOM 358 mg/dL (65-105)
--- NOTE | 2016-11-29 12:21 | CP.PCM.PN ---
Subjective - Date & Time of Evaluation Date of Evaluation: 11/29/16 Time of Evaluation: 09:00 - Subjective Subjective: afeb cellulitis resolved Objective - Vital Signs/Intake and Output Vital Signs (last 24 hours): Temp Pulse Resp BP Pulse Ox 98.7 F 65 18 103/60 98 11/29/16 08:17 11/29/16 08:17 11/29/16 08:17 11/29/16 08:17 11/29/16 08:17 - Medications Medications: Current Medications Acetaminophen (Tylenol 325mg Tab) 650 mg PO Q4 PRN PRN Reason: Pain, moderate (4-7) Last Admin: 11/24/16 11:17 Dose: 650 mg Acetaminophen (Tylenol 325mg Tab) 650 mg PO Q6 PRN PRN Reason: Fever >100.4 F Last Admin: 11/24/16 23:58 Dose: 650 mg Enoxaparin Sodium (Lovenox) 40 mg SC DAILY JANNET PRN Reason: Protocol Last Admin: 11/29/16 08:52 Dose: 40 mg Glipizide (Glucotrol) 10 mg PO BIDAC JANNET Last Admin: 11/29/16 08:51 Dose: 10 mg Levofloxacin/Dextrose (Levaquin 750mg) 750 mg in 150 mls @ 150 mls/hr IVPB DAILY JANNET Last Admin: 11/29/16 08:52 Dose: 150 mls/hr Piperacillin Sod/Tazobactam (Sod 3.375 gm/ Sodium Chloride) 100 mls @ 100 mls/ hr IVPB Q6 JANNET Insulin Human NPH (Humulin N) 20 units SC HS JANNET Last Admin: 11/28/16 21:40 Dose: Not Given Insulin Human Regular (Humulin R) 0 units SC ACHS JANNET PRN Reason: Protocol Last Admin: 11/29/16 06:57 Dose: 3 units Metformin HCl (Glucophage) 500 mg PO BIDWM JANNET Last Admin: 11/29/16 08:52 Dose: 500 mg Tramadol HCl (Ultram) 50 mg PO Q6 PRN PRN Reason: Pain, moderate (4-7) Last Admin: 11/25/16 10:32 Dose: 50 mg - Labs Labs: 11/29/16 11:00 11/29/16 11:00 - Constitutional Appears: Non-toxic - Head Exam Head Exam: NORMOCEPHALIC - Eye Exam Eye Exam: PERRL - ENT Exam ENT Exam: Mucous Membranes Dry - Neck Exam Neck Exam: absent: Lymphadenopathy - Respiratory Exam Respiratory Exam: Decreased Breath Sounds - Cardiovascular Exam Cardiovascular Exam: REGULAR RHYTHM - GI/Abdominal Exam GI & Abdominal Exam: Distended, Soft - Rectal Exam Rectal Exam: Deferred Assessment and Plan (1) Cellulitis Status: Acute (2) Cellulitis of hand, left Status: Acute
--- NOTE | 2016-11-29 14:12 | CP.PCM.PCO ---
Assessment/Plan - Assessment/Plan Assessment (Free Text): Pt stable, seen and cleared for d/c by all consultants. Seen and cleared for d/ c home by Dr. Rendon. Pt reports right wrist and elbow pain as well as right foot pain are resolved and that she is walking better now. Pt was seen by PT is is improving. CM spoke to pt's family and they are aware pt needs constant monitoring to prevent falls. Rx given for Keflex. Pt to resume home meds. - Problems Patient Problems: Problem List (Active/Current) Problem Status Onset Code Elbow pain, right Acute M25.521 Hand pain, right Acute M79.641 Physical deconditioning Acute R53.81 Right foot pain Acute M79.671 Weakness of both lower extremities Acute R29.898
[2016-11-29] MEDS ORDERED: Piperacillin/Tazobact 3.375 GM in Sodium Chloride 0.9% 100 ML IVPB SCH (16:00)
--- NOTE | 2016-11-29 16:51 | CP.PCM.PN ---
Subjective - Date & Time of Evaluation Date of Evaluation: 11/29/16 Time of Evaluation: 10:40 - Subjective Subjective: F/U Weakness L/E. Pt with no c/o, no A/D, no pain. Objective - Vital Signs/Intake and Output Vital Signs (last 24 hours): Temp Pulse Resp BP Pulse Ox 98.7 F 65 18 103/60 98 11/29/16 08:17 11/29/16 08:17 11/29/16 08:17 11/29/16 08:17 11/29/16 08:17 - Labs Labs: 11/29/16 11:00 11/29/16 11:00 - Constitutional Appears: No Acute Distress - Head Exam Head Exam: NORMAL INSPECTION - Eye Exam Eye Exam: PERRL - ENT Exam ENT Exam: Normal Oropharynx - Neck Exam Neck Exam: Normal Inspection - Respiratory Exam Respiratory Exam: NORMAL BREATHING PATTERN - Cardiovascular Exam Cardiovascular Exam: REGULAR RHYTHM - GI/Abdominal Exam GI & Abdominal Exam: Soft, Normal Bowel Sounds - Extremities Exam Extremities Exam: Normal Inspection - Back Exam Back Exam: NORMAL INSPECTION - Neurological Exam Neurological Exam: Alert, Oriented x3. absent: Motor Sensory Deficit - Psychiatric Exam Psychiatric exam: Normal Mood - Skin Skin Exam: Warm Assessment and Plan (1) Weakness of both lower extremities Assessment & Plan: Improved. Status: Acute (2) DM2 (diabetes mellitus, type 2) Status: Chronic (3) Hyperglycemia Status: Acute (4) Hand pain, right Status: Resolved (5) Right foot pain Status: Resolved (6) Elbow pain, right Status: Resolved - Assessment and Plan (Free Text) Plan: Pt improved and stable to be discharged, see instruction medication sheet, f/u with PMD in a week.
--- NOTE | 2016-12-02 12:57 | PQF GENQUE ---
Dr. Price pt was admitted with lower extremity weakness. After study if known, what is the cause or source of pt's weakness? This form is a permanent part of the medical record Clarification of your documentation is requested to better reflect the severity of illness and intensity of treatment of your patient. Indicators present [] Specify: [] [] Specify: [] [] Specify: [] [] Specify: [] Location in the medical record that reflects the above clinical findings: [] Treatment Provided: [] PHYSICIAN'S RESPONSE Based on your medical judgment of the clinical indicators outlined above please clarify the following: [] Practitioner response [] If unable to determine, please check the box, sign and date. Present On Admission (POA) Indicator: [] Present at the time of admission [] Not present at the time of admission [] Clinically Undetermined In responding to this query, please exercise your independent professional judgment. The fact that a question is asked does not imply that any particular answer is desired or expected. Thank you for your clarification on this documentation. If you have any questions please call:[ ] * Thank you, [ ]Maddie Swift marine design engineer JAYLA
--- NOTE | 2016-12-13 15:57 | CP.PCM.DIS ---
Provider - Provider Date of Admission: 11/23/16 13:07 Attending physician: Roderick Price MD Consults: Infectious Diseases. Time Spent in preparation of Discharge (in minutes): 25 Diagnosis - Discharge Diagnosis (1) Weakness of both lower extremities Status: Acute (2) DM2 (diabetes mellitus, type 2) Status: Chronic Priority: High (3) Hyperglycemia Status: Acute Priority: High (4) Hand pain, right Status: Resolved (5) Right foot pain Status: Resolved (6) Elbow pain, right Status: Resolved Hospital Course - Lab Results Lab Results: Micro Results 11/25/16 09:55 Blood Blood Culture - Final NO GROWTH AFTER 5 DAYS 11/25/16 09:55 Blood Gram Stain - Final TEST NOT PERFORMED Most Recent Lab Values WBC 4.5 K/uL (4.8-10.8) L 11/29/16 11:00 RBC 3.39 Mil/uL (3.80-5.20) L 11/29/16 11:00 Hgb 10.0 g/dL (12.0-16.0) L 11/29/16 11:00 Hct 30.1 % (34.0-47.0) L 11/29/16 11:00 MCV 88.7 fl (81.0-99.0) 11/29/16 11:00 MCH 29.4 pg (27.0-31.0) 11/29/16 11:00 MCHC 33.1 g/dL (33.0-37.0) 11/29/16 11:00 RDW 12.4 % (11.5-14.5) 11/29/16 11:00 Plt Count 281 K/uL (130-400) D 11/29/16 11:00 MPV 7.6 fl (7.2-11.7) 11/29/16 11:00 Neut % (Auto) 65.9 % (50.0-75.0) 11/29/16 11:00 Lymph % (Auto) 22.0 % (20.0-40.0) 11/29/16 11:00 [place] % (Auto) 9.5 % (0.0-10.0) 11/29/16 11:00 Eos % (Auto) 1.8 % (0.0-4.0) 11/29/16 11:00 Baso % (Auto) 0.8 % (0.0-2.0) 11/29/16 11:00 Neut # 2.9 K/uL (1.8-7.0) 11/29/16 11:00 Lymph # 1.0 K/uL (1.0-4.3) 11/29/16 11:00 [place] # 0.4 K/uL (0.0-0.8) 11/29/16 11:00 Eos # 0.1 K/uL (0.0-0.7) 11/29/16 11:00 Baso # 0.0 K/uL (0.0-0.2) 11/29/16 11:00 Neutrophils % (Manual) 88 % (42-75) H 11/23/16 09:51 Lymphocytes % (Manual) 6 % (20-50) L 11/23/16 09:51 Monocytes % (Manual) 6 % (0-10) 11/23/16 09:51 Platelet Estimate Normal (NORMAL) 11/23/16 09:51 Hypochromasia (manual) Slight 11/23/16 09:51 Sodium 136 mmol/l (132-148) 11/29/16 11:00 Potassium 3.9 MMOL/L (3.6-5.0) 11/29/16 11:00 Chloride 101 mmol/L (98-107) 11/29/16 11:00 Carbon Dioxide 27 mmol/L (22-30) 11/29/16 11:00 Anion Gap 13 (10-20) 11/29/16 11:00 BUN 12 mg/dl (7-17) 11/29/16 11:00 Creatinine 0.7 mg/dL (0.7-1.2) 11/29/16 11:00 Est GFR ( Amer) > 60 11/29/16 11:00 Est GFR (Non-Af Amer) > 60 11/29/16 11:00 POC Glucose (mg/dL) 354 mg/dL (65-110) H 11/29/16 11:32 Random Glucose 358 mg/dL (65-105) H 11/29/16 11:00 Uric Acid 1.2 mg/Dl (2.2-7.5) L 11/26/16 15:03 Calcium 8.9 mg/dL (8.4-10.2) 11/29/16 11:00 Phosphorus 3.6 mg/dl (2.5-4.5) 11/23/16 09:51 Magnesium 1.5 MG/DL (1.6-2.3) L 11/23/16 09:51 Total Bilirubin 1.6 mg/dl (0.2-1.3) H 11/23/16 09:51 AST 37 U/L (14-36) H D 11/23/16 09:51 ALT 44 U/L (9-52) 11/23/16 09:51 Alkaline Phosphatase 118 U/L (38-126) 11/23/16 09:51 Total Creatine Kinase 47 U/L (30-135) 11/23/16 09:51 Troponin I < 0.0120 ng/mL (0.00-0.120) 11/23/16 09:51 Total Protein 8.4 G/DL (6.3-8.2) H 11/23/16 09:51 Albumin 4.3 g/dL (3.5-5.0) 11/23/16 09:51 Globulin 4.1 gm/dL (2.2-3.9) H 11/23/16 09:51 Albumin/Globulin Ratio 1.0 (1.0-2.1) 11/23/16 09:51 Urine Color Yellow (YELLOW) 11/23/16 11:42 Urine Clarity Clear (Clear) 11/23/16 11:42 Urine pH 6.0 (5.0-8.0) 11/23/16 11:42 Ur Specific [place] 1.006 (1.003-1.030) 11/23/16 11:42 Urine Protein Negative mg/dL (NEGATIVE) 11/23/16 11:42 Urine Glucose (UA) >=500 mg/dL (Normal) 11/23/16 11:42 Urine Ketones Trace mg/dL (NEGATIVE) 11/23/16 11:42 Urine Blood Negative (NEGATIVE) 11/23/16 11:42 Urine Nitrate Negative (NEGATIVE) 11/23/16 11:42 Urine Bilirubin Negative (NEGATIVE) 11/23/16 11:42 Urine Urobilinogen 0.2-1.0 mg/dL (0.2-1.0) 11/23/16 11:42 Ur Leukocyte Esterase Neg [place]/uL (Negative) 11/23/16 11:42 Urine RBC (Auto) 1 /hpf (0-3) 11/23/16 11:42 Urine Microscopic WBC 4 /hpf (0-5) 11/23/16 11:42 Urine Bacteria Rare (<OCC) 11/23/16 11:42 IgG 1128.3 mg/dL (700.0-1600.0) 11/23/16 08:20 IgA 480.1 mg/dL (70.0-400.0) H 11/23/16 08:20 Rheum Arthritis Panel Negative (NEGATIVE) 11/25/16 10:48 Lyme Disease Screen <0.90 index 11/25/16 20:24 - Date & Time of H&P Date of H&P: 11/24/16 Time of H&P: 12:20 Discharge Exam - Head Exam Head Exam: NORMAL INSPECTION Discharge Plan - Discharge Medications Prescriptions: Cephalexin [Keflex] 500 mg PO BID #10 capsule - Follow Up Plan Condition: FAIR Disposition: HOME/ ROUTINE Patient education suggested?: Yes Instructions: Pneumonia (DC) Additional Instructions: dodie purcell [phone] para ser maisha. Dra Estrella es doctora para diabetes Referrals: Mattie Estrella MD [Medical Doctor] -
== END 2016-11-29 15:05 | disposition home or self-care (01) | DRG 18 ==
LOC: H.ER 08:47 → H.ERHOLD 13:07 → H.MEDSURG1 17:28
PROVIDERS: ADMIT Internal Medicine Pulmonary Disease; ATTEND Internal Medicine Pulmonary Disease
DX: E11.40 Type 2 diabetes mellitus with diabetic neuropathy, unspecified (principal); L03.119 Cellulitis of unspecified part of limb; E11.65 Type 2 diabetes mellitus with hyperglycemia; L03.114 Cellulitis of left upper limb; G30.9 Alzheimer's disease, unspecified; F02.80 Dementia in other diseases classified elsewhere, unspecified severity, without behavioral disturbance, psychotic disturbance, mood disturbance, and anxiety; E78.00 Pure hypercholesterolemia, unspecified; E78.5 Hyperlipidemia, unspecified; I10 Essential (primary) hypertension; M81.0 Age-related osteoporosis without current pathological fracture